=== PATIENT | female | born 1940 | race Caucasian/White ===

== ENCOUNTER → 2016-05-10 | Outpatient (CLI) | payer MEDICARE ==
[~2016-05-10] MED LIST: ACET-1256 PO; ALBUAER2 INH; APIX1TAB3 PO; ATV5X PO; CARV25TA2 PO; CRG25 PO; DILT120C PO; DILT120C68 PO; DXM/4 PO; FURO-85 PO; LOSA100T65 PO; LOSA1TAB38 PO; NTRGSL/4 UT; OPTIRAY 320 IV PRN; OXYC-609 PO; PRAV20TA PO; PRVC/20 PO; VNTHFA/IN INH
--- NOTE | 2016-05-10 15:32 | DIAGNOSTIC IMAGING REPORT ---
CT SCAN OF THE CHEST WITH IV CONTRAST CLINICAL HISTORY: Lung cancer follow-up. COMPARISON STUDY: Chest CT scans dated 12/16/2015 and 02/07/2013. TECHNIQUE: Following the IV administration of 93 cc of Optiray 320, CT scan of the thorax was performed from the thoracic inlet to the upper abdomen. Images are reviewed in the axial, sagittal, and coronal planes. IV contrast was administered without complication. CT DOSE: 214.37 mGy.cm FINDINGS: Thyroid: Imaged portions of the thyroid gland are normal in size and attenuation. Thoracic aorta: There is mild atherosclerotic calcification of the thoracic aorta, which is normal in caliber and demonstrates standard 3-vessel arch anatomy. No dissection is seen. Pulmonary vasculature: The main pulmonary arteries appear dilated suggesting pulmonary artery hypertension. There are no filling defects identified in the central pulmonary vessels to indicate pulmonary embolus. Note that this examination was not protocoled for evaluation of the pulmonary arteries. Heart: The heart is normal in size and configuration, and without pericardial effusion. The coronary arteries are densely calcified. Lungs and pleural spaces: A fat-containing Bochdalek hernia is present at the right lung base. Advanced emphysema is identified. A fiducial is seen in the left upper lobe. The left upper lobe pulmonary nodule seen on image #89 adjacent to the do show has continued to decrease in size from 12/16/2015. This now measures up to 7 mm. There is an enlarging left upper lobe pulmonary nodule seen more inferiorly on image #104. This measures 8 mm (previously measuring 3 mm). No concerning right-sided pulmonary lesion is identified. A 3 mm indeterminant right middle lobe nodule on image 167 is unchanged dating back to 2012 and is of doubtful significance. No airspace consolidation is seen typical for pneumonia and there is no pleural effusion. The trachea and central airways are clear. Mediastinum: There is no mediastinal lymphadenopathy. Huyen: Clear. Axillae: There is no axillary lymphadenopathy. Upper abdomen: The partially imaged kidneys are atrophic, right asymmetrically greater than left. There is glandular atrophy of the partially imaged pancreas. No adrenal lesion is seen. Skeletal structures: The skeletal structures are osteopenic. No lytic or blastic bony lesions are seen. Soft tissues: The patient is cachectic. IMPRESSION: 1. The subpleural pulmonary lesion in the left upper lobe adjacent to the metallic fiducial has continued to decrease in size from 12/16/2015. 2. There is a second and enlarging pulmonary nodule located more inferiorly in the left upper lobe which now measures up to 8 mm. This is concerning for progression of disease. 3. No mediastinal or hilar lymphadenopathy is identified. 4. Emphysema. 5. No airspace consolidation is seen typical for pneumonia and there is no pleural effusion. 6. Additional findings as above. Electronically signed by: Herbert Rodriguez M.D. 05/10/2016 3:31 PM Dictated Date/Time: 05/10/2016 3:23 PM
== END ==
LOC: C.CTS 15:07
PROVIDERS: ATTEND Radiology Radiation Oncology
DX: C34.12 Malignant neoplasm of upper lobe, left bronchus or lung (principal)

== ENCOUNTER → 2016-05-17 | Outpatient (CLI) | payer MEDICARE ==
[~2016-05-17] MED LIST changes: -OPTIRAY 320 IV PRN
--- NOTE | 2016-05-17 13:45 | Discharge Instructions ---
Discharge Instructions Procedure Procedure Date: May 17, 2016. Reason for visit: Thyroid Nodule, Lung Cancer. Discharge Discharge Date: May 17, 2016. Discharge Diagnosis: thyroid nodule Instructions Activity Recommendations: No limitations Return to School/Work: no limitations Recommended Home Diet: No Limitations, Resume Previous Diet Provider Instructions: Ultrasound guided fine-needle aspiration is performed on a left sided thyroid nodule with 1 pass using a 25-gauge needle. Specimens were reviewed by the pathologist in real time and deemed adequate for diagnosis. There were no immediate complications. Allergies Coded Allergies: Lisinopril (Verified Allergy, Intermediate, cough, 08/07/15) Uncoded Allergies: bees (Allergy, Severe, hives and swell up, 06/26/15) Vicky Keys Recommendations: Call your doctor if: * Temperature above 101 degrees * Pain not relieved by pain medicine ordered * There is increased drainage or redness from any incision * You have any unanswered questions or concerns. Your Doctors Instructions noted above were prepared by provider Herbert Rodriguez. Patient Signature Section: Patient Instructions Signature Page Radha De Souza Patient (or Guardian) Signature/Date: I have read and understand the instructions given to me by my caregivers. Caregiver/RN/Doctor Signature/Date: The above-named patient and/or guardian has received patient instructions on this date. + Original Patient Signature Page (only) stays with chart. Please make copy for patient.
--- NOTE | 2016-05-17 14:14 | DIAGNOSTIC IMAGING REPORT ---
ULTRASOUND-GUIDED FINE-NEEDLE ASPIRATION THYROID CLINICAL HISTORY: Left thyroid nodule. COMPARISON STUDY: Thyroid ultrasound dated 04/15/2016. PROCEDURE: The risks, benefits, and alternatives to the procedure were discussed with the patient. Written informed consent was obtained. The patient was placed supine in ultrasound, and the 1.6 x 1.8 x 1.6 cm calcification containing nodule in the left lobe of the thyroid was localized by ultrasound and selected for fine needle aspiration. The left neck was prepped and draped in the usual sterile fashion. The nodule was aspirated under ultrasound guidance with 1 pass utilizing 25-gauge needles. Specimens were reviewed by the pathologist in real-time and deemed adequate for diagnosis. The patient tolerated the procedure well and left the department in satisfactory condition. IMPRESSION: Completed fine-needle aspiration of a left thyroid nodule as above. Electronically signed by: Herbert Rodriguez M.D. 05/17/2016 2:12 PM Dictated Date/Time: 05/17/2016 2:11 PM
== END | disposition home or self-care (01) ==
LOC: C.ULTR 12:29
PROVIDERS: ATTEND Internal Medicine Endocrinology, Diabetes & Metabolism
DX: C34.10 Malignant neoplasm of upper lobe, unspecified bronchus or lung (principal); E04.1 Nontoxic single thyroid nodule

== ENCOUNTER → 2016-06-01 | Outpatient (CLI) | payer MEDICARE ==
--- NOTE | 2016-07-05 13:17 | Radiation Onc End of Treatmnt ---
End of Treatment Documentation Date July 05, 2016. 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 Received 5000 cGy. Last Edited By: Abigail Bowser on July 05, 2016 13:11 History Ms. De Souza is a 75-year-old female with a long smoking history. She recently stopped smoking several weeks ago but with the diagnosis of cancer has restarted smoking but only 3-4 cigarettes a day. In December of last year the patient presented to the emergency department with a cough and mild hemoptysis. A chest x-ray was performed and reportedly raised the question of a pulmonary nodule. On 03/28/[address] scan of the chest with contrast. This revealed a 1.3 x 1.0 cm right retropectoral lymph node that is slightly increased in size compared to the previous examination of 02/07/2013. An irregular 1.5 x 0.8 cm subpleural left upper lobe nodule was also identified corresponding to the chest radiograph taken 01/11/2015. A 0.5 cm right upper lobe nodule was seen that was unchanged compared to the CT of 02/07/2013 and a 4 mm right middle lobe nodule also unchanged. Patient went on to have a PET CT scan on 04/07/2015.. This revealed marked focal FDG uptake along the left posterior aspect of the thyroid gland with an SUV max of 7.4. This likely corresponded to a 1.7 cm nodule within the posterior aspect of the upper pole the left thyroid lobe. No cervical lymphadenopathy was identified. In the chest a mild FDG uptake was appreciated with an irregular 1.5 cm subpleural nodule within the left upper lobe with an SUV max of 3.1. There was mild asymmetric FDG uptake within the left hilum with an SUV max of 2.7. No corresponding enlarged lymph nodes were identified. The previously described right retropectoral lymph node had no significant FDG uptake. No suspicious FDG uptake as identified in the abdomen or pelvis and no suspicious FDG uptake is identified within the visualized skeletal structures. The patient was sent for evaluation to Dr. Brarie Shore on 04/24/2015. He ordered repeat pulmonary function tests and discussed navigational bronchoscopy and EBUS for tissue diagnosis. PFTs taken on April 02 showed severe obstruction with air trapping and reduced diffusion consistent with severe emphysema. This was repeated on 05/15/2015. This also identified very severe obstructive airway disease with no significant change after inhaled bronchodilator. There was moderate air trapping on lung volumes with severe reduction in DLCO consistent with severe chronic obstructive pulmonary disease. On 05/30/2015 Dr. Tyrell Baeza performed navigational bronchoscopy with biopsy of the left upper lobe mass with brushing and needle biopsy. A fiducial marker was placed at the left upper lobe mass and a [id number] of the endobronchial lesion in the left upper lobe was performed. A mass was noted along the posterior aspect of the left upper lobe bronchus and the right bronchial tree was examined and was unremarkable. In the left lower lobe bronchus encompassing approximately 25% of the circumference was a flat macular-type lesion that appeared abnormal. The bronchial brushings of the left upper lobe revealed atypical bronchial cells that are of concern for non-small cell carcinoma. Case: [id number]. A triple needle brushing of the left upper lobe revealed benign bronchial epithelium with no malignant cells. Case: [id number]. Bronchial washings from the left upper lobe revealed benign reactive bronchial epithelium with no malignant cells. Case: [id number]. Transbronchial aspirate revealed extremely rare atypical cells that could not exclude a non-small cell carcinoma Case: [id number]. 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 The left upper lobe bronchial biopsies revealed moderately differentiated adenocarcinoma. Case: [id number]. The patient returned to see Dr. Shore to discuss the bronchoscopy findings. The patient was told that she had a peripheral left upper lobe lesion that was an adenocarcinoma on biopsy and a squamous cell carcinoma the lining of the proximal left upper lobe bronchus. Because of her very poor lung function she was not felt to be a surgical candidate. Additional tests have been ordered on the tissue and we were asked to see the patient in referral for discussion of the radiation treatment options. After discussion with the patient it was decided to proceed with definitive radiation to the 2 lesions. The one lesion was treated with a stereotactic course of 4 fractions at 1200 cGy per fraction for a total dose of 48 Gy over 6 elapsed days. The second lesion was treated with a hypo-fractionated technique of 12 fractions of 400 cGy per fraction also for total dose of 48 Gy over 17 days. She tolerated her courses of radiation therapy well. She does have claustrophobia and required the use of lorazepam prior to treatment. She had no change in her respiratory status. There was no increased cough or shortness of breath. She did develop some mild dysphagia at the end of the hypo-fractionated treatment. This was treated with MBXC. This cleared prior to initiation of the SBRT. She did had the complaint of some shoulder discomfort due to positioning when lying on the table. She had no complaints of increasing fatigue. There were no areas of skin irritation at the end of treatment. Skin was treated preventatively with natural care gel. She took dexamethasone one hour prior to the SBRT treatments. Her respiratory status is unchanged. She becomes short of breath when trying to do vigorous activities. She has no problems with walking in from the parking lot. She denies cough. She has noted no increased wheezing. She did not require oxygen at night or throughout the day at home. She was recently found to have a thyroid nodule and had an FNA performed today. At our request she had a recheck CAT scan of the chest 2016. This showed the subpleural pulmonary lesion in the left upper lobe adjacent to the metallic fiducial marker has continued to decrease in size from . She has a second an enlarging pulmonary nodule located more inferiorly in the left upper lobe which now measures up to 8 mm. This is concerning for progression of disease. There is no mediastinal or hilar lymphadenopathy identified. She does have emphysema. No airspace consolidation is seen typical for pneumonia and there is no pleural effusion. She underwent CT simulation. She was found to be a candidate for stereotactic body radiation therapy. This was completed 06/23/2016. She received 5000 cGy. Physics Course Treatment Site [employer] Start Date End Date Elapsed Days # [place] Daily Dose (cGy) Total Dose (cGy) C3- Lt Lung, SBRT VMAT, 5 arcs 6X 06/17/2016 06/23/2016 7 5 1000 5000 Do documented final doses agree with prescribed doses? Yes If not, explain: Is patients chart complete and accurate? Yes If not, explain: Notes/Comments: Previous radiation treatments: - Lt Lung SBRT, 48 Gy in 4 fractions, finishing on 09/05/2015, and - Chest, 48 Gy in 12 fractions, finishing on 09/05/2015. Additional Notes She completed her course of radiation therapy. She tolerated this well. She did not require any breaks in treatment. She was prescribed dexamethasone to be taken prior to each treatment. She then continued the steroid therapy for one week post treatment. She had no complaints of dysphagia. She used aloe vera juice and [place] honey to prevent soreness of the throat. She did not experience any skin irritation. She'll continue regular follow-up with Dr. Reyez and Dr. Ross. We asked her to return to our office in one month. She may call if she has any questions or concerns in the interim. Pain Management She denied pain before, during, and at the end of treatment. Copies To Parrish Ross D.O.; Catalino Reyez D.O.
--- NOTE | 2016-07-05 13:20 | Rad Onc Survivorship Care Plan ---
Treatment Summary Health Care Providers Primary Care Provider: Dr. Reyez Surgeon: Dr. Shore Radiation Oncologist: Dr. Chris Nicole Medical Oncologist: Dr. 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 Received 5000 cGy. Last Edited By: Abigail Bowser on July 05, 2016 13:11 Radiation Treatment Radiation: Yes Body Area Treated: left upper lobe End Date (Year): 06/03/2016 Treatment: Course Treatment Site [employer] Start Date End Date Elapsed Days # [place] Daily Dose (cGy) Total Dose (cGy) C3- Lt Lung, SBRT VMAT, 5 arcs 6X 06/17/2016 06/23/2016 7 5 1000 5000 Do documented final doses agree with prescribed doses? Yes If not, explain: Is patients chart complete and accurate? Yes If not, explain: Notes/Comments: Previous radiation treatments: - Lt Lung SBRT, 48 Gy in 4 fractions, finishing on 09/05/2015, and - Chest, 48 Gy in 12 fractions, finishing on 09/05/2015. Familial Cancer Assessment Genetic/Hereditary Risk Factor: Yes Genetic Counseling: No Follow-Up Care Plan Ongoing Treatment Ongoing treatment needed: Yes Name / Duration / Side Effects Follow up studies per NCCN guidelines and your oncologist or surgical dressing maker. Schedule of Clinicial Visits Coordinating Provider & When: Follow up with your oncologist, surgeon, and primary care provider. Cancer Surveillance Provider/What/When/How Often: You will follow up with our office in 6 months and then yearly. General Health Care Please continue to see your primary care provider for all general health care recommended for a person your age, including cancer screening tests. Any symptoms should be brought to the attention of your provider: 1. Anything that represents a brand new symptom; 2. Anything that represents a persistent symptom; 3. Anything you are worried about that might be related to the cancer coming back. Possible Effects Late and/or watermelon inspector effects: Following the completion of treatment, your acute side effects from radiation treatment should improve including but not limited to fatigue, skin irritation, esophagitis, shortness of breath and cough. Late side effects include, but are not limited to radiation pneumonitis, esophageal stricture, fistula formation, rib fracture, pulmonary fibrosis, decreased breathing function/quality, spinal myelopathy, cardiac dysfunction ( atheroscelerosis, pericarditis, CHF, myocardial infarction, valvular disease). You are also at risk of developing secondary cancer. Concerns Cancer survivors may experience issues with the areas listed below. If you have any concerns in these or other areas, please speak with your doctors or nurses to find out how you can get help with them. Lifestyle / Behaviors A number of lifestyle / behaviors can affect your ongoing health, including the risk for the cancer coming back or developing another cancer. Discuss these recommendations with your doctor or nurse. Prepared By Your Survivorship Care Plan was prepared by Abigail Bowser on 07/05/16. Additional Copies To Parrish Ross D.O.; Catalino Reyez D.O.
== END | disposition home or self-care (01) ==
LOC: C.ONC 12:00
PROVIDERS: ATTEND Radiology Radiation Oncology
DX: Z51.0 Encounter for antineoplastic radiation therapy (principal); C34.12 Malignant neoplasm of upper lobe, left bronchus or lung

== ENCOUNTER 2016-06-21 16:52 | Emergency (ER) | payer MEDICARE ==
[~2016-06-21] VITALS: Ht 157.5 cm; Wt 48.9 kg
[~2016-06-21 16:52] MED LIST changes: -ACET-1256 PO; -APIX1TAB3 PO; -ATV5X PO; -CRG25 PO; -DILT120C PO; -DXM/4 PO; -FURO-85 PO; -LOSA100T65 PO; -NTRGSL/4 UT; -OXYC-609 PO; -PRVC/20 PO; -VNTHFA/IN INH
[2016-06-21 17:14] VITALS: TEMP 36.5; Ht 157.5 cm; Wt 48.9 kg
[2016-06-21] MEDS ORDERED: VNTHFA/IN INH (18:30)
[2016-06-21] MEDS ORDERED: DXM/4 PO (18:30)
[2016-06-21] MEDS ORDERED: CRG25 PO (18:30)
[2016-06-21] MEDS ORDERED: PRVC/20 PO (18:30)
[2016-06-21] MEDS ORDERED: LOSA100T65 PO (18:30)
[2016-06-21] MEDS ORDERED: OXYC-609 PO (18:30)
[2016-06-21] MEDS ORDERED: ATV5X PO (18:30)
[2016-06-21] MEDS ORDERED: DILT120C PO (18:30)
[2016-06-21] MEDS ORDERED: DOXYCYCLINE HYCLATE 100 MG CAP PO STA (18:31)
[2016-06-21] MEDS ORDERED: ACET-1256 PO (18:33)
--- NOTE | 2016-06-21 18:34 | EMERGENCY ROOM VISIT NOTE ---
History First contact with patient: 17:24 Chief Complaint: ARM PAIN Stated Complaint: STRANGE LUMO ON FORE ARM History of Present Illness The patient is a 75 year old female who presents to the Emergency Room via private vehicle accompanied by daughter with complaints of "strange lump on forearm". The patient states that she was outside yesterday, and noticed the bump on the left dorsal forearm today. She notes that she is on a blood thinner. She states she was treated for Lyme disease in the past. She states she believes that that may be part of a tick still stuck in this region. There is minimal pain. She is unsure of her tetanus status, but is to call her family doctor tomorrow to identify her status. Review of Systems A complete 6-point Review of Systems was discussed with the patient, with pertinent positives and negatives listed in the History of Present Illness. All remaining Review of Systems questions can be considered negative unless otherwise specified. Past Medical/Surgical History Medical Problems: (1) A-fib (2) Bronchitis (3) Emphysema lung (4) Heart disease (5) HTN (hypertension) Surgical Problems: (1) History of renal stent Family History Cancer FH: heart disease FHx: lung disease Hypertension Social History Smoking Status: Former Smoker Housing Status: lives alone Occupation Status: retired Current/Historical Medications Scheduled Apixaban (Eliquis), 5 MG PO BID Carvedilol (Carvedilol), 25 MG PO BID Dexamethasone (Decadron), 4 MG PO DAILY Diltiazem Hcl Coated Beads (Diltiazem Hcl Er), 120 MG PO DAILY Losartan Potassium (Cozaar), 100 MG PO QAM Pravastatin Sod (Pravastatin Sodium), 20 MG PO QAM Scheduled PRN Acetaminophen (Tylenol), 1,000 MG PO UD PRN for Pain Albuterol Hfa (Ventolin Hfa), 2 PUFFS INH QID PRN for SOB/Wheezing Furosemide (Lasix), 20 MG PO DAILY PRN for Edema/Shortness of Breath Lorazepam (Lorazepam), 0.5 MG PO DAILY PRN for Anxiety Nitroglycerin (Nitrostat), 0.4 MG UT UD PRN for Chest Pain Oxycodone HCl (Oxycodone HCl), 5-10 MG PO Q4-6HRS PRN for Pain Allergies Coded Allergies: Bee Venom (Verified Allergy, Intermediate, Hives and swelling, 4/24/17) Lisinopril (Verified Allergy, Intermediate, cough, 06/21/16) Physical Exam Vital Signs Date Time Temp Pulse Resp B/P Pulse Ox O2 Delivery O2 Flow Rate FiO2 06/21/16 18:36 64 18 158/92 92 Room Air 06/21/16 17:14 36.5 75 20 154/93 86 Room Air Physical Exam VITAL SIGNS - Vital signs and nursing notes were reviewed. GENERAL - 75-year-old female appearing her stated age who is in no acute distress. Communicates well with provider and answers questions appropriately. SKIN - there is evidence of retained mouthparts of a tick in the dorsal aspect of the right mid forearm. There is slight elevation of this region and a small nodular-like 1 cm in diameter raised lesion. No active extravasation of blood. Medical Decision & Procedures Medications Administered Medications (Trade) Dose Ordered Sig/Mo Route Start Time Stop Time Status Last Admin Dose Admin Doxycycline Hyclate (Vibramycin Cap) 200 mg ONE STAT PO 06/21/16 18:31 06/21/16 18:32 DC 06/21/16 18:40 200 MG Medical Decision Patient was seen and evaluated as above. She is oxygenating at 86% on room air , and notes that this is chronic for her and was verified by her daughter. She declined workup for her diminished oxygenation saturation. The patient presents here with chief complaint of tick in her forearm. No other complaints at this time. There is a small retained piece of the tick. I offered to attempt to remove this, and she provided consent. A sterile 18-gauge needle was used to remove this without difficulty. There is no evidence of skin disruption. She'll be given a prophylactic dose of 200 mg of doxycycline for the tick bite. She was educated upon worrisome symptoms for Lyme disease in which to return. She was educated upon worrisome symptoms which to return, had questions prior to discharge and was discharged home in good condition. In evaluation treatment this patient following differential diagnoses entertained: Tick, cellulitis, among others. Impression Primary Impression: Tick bite Departure Information Dispostion Home / Self-Care Condition GOOD Referrals Catalino Reyez D.O. (PCP) Patient Instructions My [facility] Additional Instructions You were seen in the emergency department for your tick bite on her left arm. Please continue your regular medications. You may clean the area with soap and water and place a small amount of antibacterial ointment on this region. Please watch for worsening infection to include worsening rash or redness streaking. At this time I do not suspect Lyme disease, however please beware of symptoms such as fevers, chills, joint pain, and enlarging rash or any new/concerning symptoms. Please follow-up with her family doctor or return here for any new/ concerning symptoms. Please return to the emergency department with any new/concerning symptoms.
[2016-06-21 18:36] VITALS: BP 158/92; PULSE 64; O2SAT 92
[2016-06-21] MEDS ORDERED: FURO-85 PO (20:22)
[2016-06-21] MEDS ORDERED: NTRGSL/4 UT (20:22)
[2016-06-21] MEDS ORDERED: APIX1TAB3 PO (20:22)
--- NOTE | 2016-06-23 17:53 | EMERGENCY ROOM VISIT NOTE ---
ED Visit Note First contact with patient: 17:24 I have personally evaluated and examined this patient. I agree with assessment and plan of Av Bush PA-C. Tick bite with some localized swelling on blood thinners.
== END 2016-06-21 18:46 | disposition home or self-care (01) ==
LOC: C.EDB 16:53 → C.EDD 18:46
DX: S50.862A Insect bite (nonvenomous) of left forearm, initial encounter (principal); W57.XXXA Bitten or stung by nonvenomous insect and other nonvenomous arthropods, initial encounter; Z79.01 Long term (current) use of anticoagulants; I48.91 Unspecified atrial fibrillation; J43.9 Emphysema, unspecified; I10 Essential (primary) hypertension; Z80.9 Family history of malignant neoplasm, unspecified; Z82.49 Family history of ischemic heart disease and other diseases of the circulatory system; Z87.891 Personal history of nicotine dependence; Z79.899 Other long term (current) drug therapy

== ENCOUNTER → 2016-09-01 | Outpatient (CLI) | payer MEDICARE ==
[~2016-09-01] MED LIST changes: +ACET-1256 PO; -ALBUAER2 INH; +APIX1TAB3 PO; +ATV5X PO; -CARV25TA2 PO; +CRG25 PO; +DILT120C PO; -DILT120C68 PO; +DXM/4 PO; +FURO-85 PO; +LOSA100T65 PO; -LOSA1TAB38 PO; +NTRGSL/4 UT; +OXYC-609 PO; -PRAV20TA PO; +PRVC/20 PO; +VNTHFA/IN INH
[2016-09-01 14:53] VITALS: BP 151/77; PULSE 84; TEMP 37; O2SAT 87
--- NOTE | 2016-09-01 17:07 | Radiation Oncology Follow-Up ---
Radiation Oncology Follow-Up Date of Visit Sep 01, 2016. 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 Received 5000 cGy. Last Edited By: Abigail Bowser on July 05, 2016 13:11 History of Present Illness Ms. De Souza is a 75-year-old female with a long smoking history. She recently stopped smoking several weeks ago but with the diagnosis of cancer has restarted smoking but only 3-4 cigarettes a day. In December of last year the patient presented to the emergency department with a cough and mild hemoptysis. A chest x-ray was performed and reportedly raised the question of a pulmonary nodule. On 03/28/[address] scan of the chest with contrast. This revealed a 1.3 x 1.0 cm right retropectoral lymph node that is slightly increased in size compared to the previous examination of 02/07/2013. An irregular 1.5 x 0.8 cm subpleural left upper lobe nodule was also identified corresponding to the chest radiograph taken 01/11/2015. A 0.5 cm right upper lobe nodule was seen that was unchanged compared to the CT of 02/07/2013 and a 4 mm right middle lobe nodule also unchanged. Patient went on to have a PET CT scan on 04/07/2015.. This revealed marked focal FDG uptake along the left posterior aspect of the thyroid gland with an SUV max of 7.4. This likely corresponded to a 1.7 cm nodule within the posterior aspect of the upper pole the left thyroid lobe. No cervical lymphadenopathy was identified. In the chest a mild FDG uptake was appreciated with an irregular 1.5 cm subpleural nodule within the left upper lobe with an SUV max of 3.1. There was mild asymmetric FDG uptake within the left hilum with an SUV max of 2.7. No corresponding enlarged lymph nodes were identified. The previously described right retropectoral lymph node had no significant FDG uptake. No suspicious FDG uptake as identified in the abdomen or pelvis and no suspicious FDG uptake is identified within the visualized skeletal structures. The patient was sent for evaluation to Dr. Barrie Shore on 04/24/2015. He ordered repeat pulmonary function tests and discussed navigational bronchoscopy and EBUS for tissue diagnosis. PFTs taken on April 02 showed severe obstruction with air trapping and reduced diffusion consistent with severe emphysema. This was repeated on 05/15/2015. This also identified very severe obstructive airway disease with no significant change after inhaled bronchodilator. There was moderate air trapping on lung volumes with severe reduction in DLCO consistent with severe chronic obstructive pulmonary disease. On 05/30/2015 Dr. Tyrell Baeza performed navigational bronchoscopy with biopsy of the left upper lobe mass with brushing and needle biopsy. A fiducial marker was placed at the left upper lobe mass and a [id number] of the endobronchial lesion in the left upper lobe was performed. A mass was noted along the posterior aspect of the left upper lobe bronchus and the right bronchial tree was examined and was unremarkable. In the left lower lobe bronchus encompassing approximately 25% of the circumference was a flat macular-type lesion that appeared abnormal. The bronchial brushings of the left upper lobe revealed atypical bronchial cells that are of concern for non-small cell carcinoma. Case: [id number]. A triple needle brushing of the left upper lobe revealed benign bronchial epithelium with no malignant cells. Case: [id number]. Bronchial washings from the left upper lobe revealed benign reactive bronchial epithelium with no malignant cells. Case: [id number]. Transbronchial aspirate revealed extremely rare atypical cells that could not exclude a non-small cell carcinoma Case: [id number]. 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 The left upper lobe bronchial biopsies revealed moderately differentiated adenocarcinoma. Case: [id number]. The patient returned to see Dr. Shore to discuss the bronchoscopy findings. The patient was told that she had a peripheral left upper lobe lesion that was an adenocarcinoma on biopsy and a squamous cell carcinoma the lining of the proximal left upper lobe bronchus. Because of her very poor lung function she was not felt to be a surgical candidate. Additional tests have been ordered on the tissue and we were asked to see the patient in referral for discussion of the radiation treatment options. After discussion with the patient it was decided to proceed with definitive radiation to the 2 lesions. The one lesion was treated with a stereotactic course of 4 fractions at 1200 cGy per fraction for a total dose of 48 Gy over 6 elapsed days. The second lesion was treated with a hypo-fractionated technique of 12 fractions of 400 cGy per fraction also for total dose of 48 Gy over 17 days. She tolerated her courses of radiation therapy well. She does have claustrophobia and required the use of lorazepam prior to treatment. She had no change in her respiratory status. There was no increased cough or shortness of breath. She did develop some mild dysphagia at the end of the hypo-fractionated treatment. This was treated with MBXC. This cleared prior to initiation of the SBRT. She did had the complaint of some shoulder discomfort due to positioning when lying on the table. She had no complaints of increasing fatigue. There were no areas of skin irritation at the end of treatment. Skin was treated preventatively with natural care gel. She took dexamethasone one hour prior to the SBRT treatments. Her respiratory status is unchanged. She becomes short of breath when trying to do vigorous activities. She has no problems with walking in from the parking lot. She denies cough. She has noted no increased wheezing. She did not require oxygen at night or throughout the day at home. She was recently found to have a thyroid nodule and had an FNA performed today. At our request she had a recheck CAT scan of the chest 2016. This showed the subpleural pulmonary lesion in the left upper lobe adjacent to the metallic fiducial marker has continued to decrease in size from . She has a second an enlarging pulmonary nodule located more inferiorly in the left upper lobe which now measures up to 8 mm. This is concerning for progression of disease. There is no mediastinal or hilar lymphadenopathy identified. She does have emphysema. No airspace consolidation is seen typical for pneumonia and there is no pleural effusion. She underwent CT simulation. She was found to be a candidate for stereotactic body radiation therapy. This was completed 06/23/2016. She received 5000 cGy. Interim History She has noticed since completion of her radiation she does have some increased shortness of breath. She denies cough or sputum production. She denies any wheezing. She denies fatigue from her treatment. Pulse oximetry today was 80- 87% on room air. When discussed she states that this is the usual range for her pulse oximetry. She has been followed by Dr. Devi. She stated that he has now retired and she needs a new pulmonary physician. She states she has not been prescribed oxygen therapy. As part of her staging studies in the past she had a PET scan this did reveal a nodule of the thyroid that was active. This was noted when she was seen for treatment of the lung nodule. She was referred to Dr. Zimmerman and underwent a fine-needle aspiration. 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 Allergies Coded Allergies: Bee Venom (Verified Allergy, Intermediate, Hives and swelling, 06/21/16) Lisinopril (Verified Allergy, Intermediate, cough, 06/21/16) Home Medications Scheduled Apixaban (Eliquis), 5 MG PO BID Carvedilol (Carvedilol), 25 MG PO BID Diltiazem Hcl Coated Beads (Diltiazem Hcl Er), 120 MG PO DAILY Losartan Potassium (Cozaar), 100 MG PO QAM Pravastatin Sod (Pravastatin Sodium), 20 MG PO QAM Scheduled PRN Acetaminophen (Tylenol), 1,000 MG PO UD PRN for Pain Albuterol Hfa (Ventolin Hfa), 2 PUFFS INH QID PRN for SOB/Wheezing Furosemide (Lasix), 20 MG PO DAILY PRN for Edema/Shortness of Breath Lorazepam (Lorazepam), 0.5 MG PO DAILY PRN for Anxiety Nitroglycerin (Nitrostat), 0.4 MG UT UD PRN for Chest Pain Oxycodone HCl (Oxycodone HCl), 5-10 MG PO Q4-6HRS PRN for Pain Review of Systems Gastrointestinal: Symptoms: WNL Oral: Symptoms: No Problems Respiratory: Symptoms: SOB With Exertion, Productive Cough Sputum Character: Clear sputum; Other Respiratory: States cough comes and goes for her - worse when has postnasal drip Urinary: Symptoms: WNL Skin: Symptoms: No Problems Physical Exam Vital Signs Date Time Temp Pulse Resp B/P (MAP) Pulse Ox O2 Delivery O2 Flow Rate FiO2 09/01/16 14:53 37.0 84 24 151/77 87 Fatigue: None General Appearance: no apparent distress Eyes: normal inspection, EOMI ENT: normal ENT inspection, hearing grossly normal Neck: supple, no adenopathy, thyroid normal Respiratory/Chest: lungs clear, no respiratory distress, no accessory muscle use, + decreased breath sounds Cardiovascular: regular rate, rhythm, no gallop, no murmur Abdomen: non tender, soft, no organomegaly Extremities: no pedal edema Neurologic/Psychiatric: no motor/sensory deficits, alert, normal mood/affect Skin: warm/dry Assessment & Plan Plan: Patient will be referred to pulmonary for evaluation of her low pulse pulse oximetry findings. She'll be referred back to Dr. Zimmerman in regards to the finding of papillary thyroid carcinoma. She is due for recheck CT of the chest post radiation at the end of this month. This will be arranged. She currently does not have any follow-up appointment with medical oncology. We'll plan to refer her back to Dr. Ross after the CT of the chest is complete. We asked her to return to our office in 6 months. She'll be notified as to results of the CT of the chest. Total Time In Follow-Up I spent 20 minutes speaking to the patient and performing examination. I spent 20 minutes reviewing information, preparing the survivorship document, and completing this note. Copy To Parrish Ross D.O.; Catalino Reyez D.O.; Justin Zimmerman M.D.; Boni Pendleton MD
== END | disposition home or self-care (01) ==
LOC: C.ONC 14:41
PROVIDERS: ATTEND Physician Assistant Medical
DX: Z08 Encounter for follow-up examination after completed treatment for malignant neoplasm (principal); Z92.3 Personal history of irradiation; Z85.118 Personal history of other malignant neoplasm of bronchus and lung

== ENCOUNTER → 2016-09-23 | Outpatient (CLI) | payer MEDICARE ==
[~2016-09-23] MED LIST changes: -DXM/4 PO; +OPTIRAY 320 IV PRN
--- NOTE | 2016-09-23 15:02 | DIAGNOSTIC IMAGING REPORT ---
(CHEST) THORAX WITH CLINICAL HISTORY: 75 years-old Female presenting with LUNG CA. TECHNIQUE: Multidetector CT imaging of the chest was performed after the administration of intravenous contrast. IV contrast: 94 mL of Optiray 320. A dose lowering technique was used consistent with the principles of ALARA (as low as reasonably achievable). COMPARISON: 05/10/2016. CT DOSE (mGy.cm): The estimated cumulative dose is 245.69 mGycm. 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 On soft tissue windows, normal thyroid and thoracic inlet. No axillary, supraclavicular, hilar, or mediastinal lymphadenopathy. Minimal atherosclerosis of the origins of the major branch vessels of the aortic arch. Varicose dilatation of the right subclavian/axillary vein. Main pulmonary artery top normal in size. Coronary artery calcification. Normal heart size. No pericardial or pleural effusion. Right fat-containing Bochdalek hernia. Nodular thickening of the left adrenal gland unchanged, nonspecific. On lung windows, emphysema. Peripheral left upper lobe solid nodule adjacent to a metallic fiducial marker now measures 6 mm, previously 7 mm (series 4 image 84). Previously noted enlarging nodule slightly inferior and more central in the left upper lobe now measures 4 mm, previously 8 mm (series 4 image 99). Minimal consolidation in the lingula, possibly scarring or atelectasis. Right middle lobe groundglass nodule unchanged. Layering debris noted in the mid thoracic trachea. Mild bronchial wall thickening. On bone windows, normal osseous structures. IMPRESSION: 1. No interval growth of pulmonary nodules. The largest measures 6 mm in the left upper lobe adjacent to the fiducial marker further described above. 2. Emphysema. 3. No acute intrathoracic pathology. Electronically signed by: Joao Ziegler M.D. 09/23/2016 3:00 PM Dictated Date/Time: 09/23/2016 2:49 PM
== END | disposition home or self-care (01) ==
LOC: C.CTS 14:31
PROVIDERS: ATTEND Physician Assistant Medical
DX: C34.12 Malignant neoplasm of upper lobe, left bronchus or lung (principal)

== ENCOUNTER → 2017-02-01 | Outpatient (CLI) | payer MEDICARE ==
[~2017-02-01] MED LIST changes: -OPTIRAY 320 IV PRN
--- NOTE | 2017-02-01 16:06 | DIAGNOSTIC IMAGING REPORT ---
CHEST 2 VIEWS ROUTINE CLINICAL HISTORY: J44.9 Chronic obstructive pulmonary [id number] dyspnea COMPARISON STUDY: 08/07/2015 FINDINGS: Chronic emphysematous change. Chronic pulmonary vascular prominence. Unchanging interstitial change. Postprocedural marker left upper lung unchanged. No focal infiltrate. IMPRESSION: Chronic change. Emphysematous change. No acute process. The above report was generated using voice recognition software. It may contain grammatical, syntax or spelling errors. Electronically signed by: Bentley Quinn M.D. 02/01/2017 4:04 PM Dictated Date/Time: 02/01/2017 4:03 PM
== END | disposition home or self-care (01) ==
LOC: C.RAD 15:47
PROVIDERS: ATTEND Physician Assistant
DX: J44.9 Chronic obstructive pulmonary disease, unspecified (principal); R05 Cough

== ENCOUNTER → 2017-04-11 | Outpatient (CLI) | payer MEDICARE ==
[2017-04-11 18:04] LABS: BLOOD UREA NITROGEN 11 mg/dl (7-18); CREATININE 0.59 mg/dl (0.60-1.20)
== END | disposition home or self-care (01) ==
LOC: C.LABPBG 13:16
PROVIDERS: ATTEND Physician Assistant Medical
DX: C34.12 Malignant neoplasm of upper lobe, left bronchus or lung (principal)

== ENCOUNTER → 2017-05-03 | Outpatient (CLI) | payer MEDICARE ==
[~2017-05-03] MED LIST changes: +OPTIRAY 320 IV PRN
--- NOTE | 2017-05-03 16:03 | DIAGNOSTIC IMAGING REPORT ---
(CHEST) THORAX WITH CT DOSE: 397.11 mGy.cm HISTORY: Lung carcinoma C34.12 TECHNIQUE: Multiaxial CT images of the chest were performed following the intravenous administration of contrast. A dose lowering technique was utilized adhering to the principles of ALARA. COMPARISON: 09/23/2016 FINDINGS: Emphysematous change throughout both hemithoraces considered stable. Several parenchymal nodules essentially unaltered. Scattered areas of atelectatic change are present. Small fibrotic region at the left hilum considered unchanged. No new or interval findings. No significant mediastinal or hilar adenopathy. Degenerative changes of the osseous structures are stable. IMPRESSION: Stable, unchanged CT of the chest. Pulmonary nodularity and emphysematous change stable with no evidence for progression or significant interval change. The above report was generated using voice recognition software. It may contain grammatical, syntax or spelling errors. Electronically signed by: Bentley Quinn M.D. 05/03/2017 4:01 PM Dictated Date/Time: 05/03/2017 3:48 PM
== END | disposition home or self-care (01) ==
LOC: C.CTS 15:29
PROVIDERS: ATTEND Physician Assistant Medical
DX: C34.12 Malignant neoplasm of upper lobe, left bronchus or lung (principal)

== ENCOUNTER 2018-05-07 17:18 | Inpatient (IN) ==
[2018-05-07] MEDS ORDERED: LEVALBUTEROL 1.25MG/0.5ML NEB NEB STA (17:49)
[2018-05-07] MEDS ORDERED: SODIUM CHLORIDE 0.9% 500 ML IV ONE (17:51)
[2018-05-07 17:57] LABS: Basophils # (auto) 0.01 K/uL (0-0.2); Basophils % (auto) 0.2 %; Eosinophils # (auto) 0.08 K/uL (0-0.5); Eosinophils % (auto) 1.7 %; Hematocrit (blood only) 38.4 % (37-47); Immature Granulocytes # (auto) 0.01 K/uL (0.00-0.02); Immature Granulocytes % (auto) 0.2 %; Lymphocytes # (auto) 1.05 K/uL (1.2-3.4); Lymphocytes % (auto) 22.9 %; Mean Corpuscular Hgb Conc 33.9 g/dL (32-36); Mean Corpuscular Volume 89.3 fL (80-100); Monocytes # (auto) 0.77 K/uL (0.11-0.59); Monocytes % (auto) 16.8 %; Neutrophils # (auto) 2.66 K/uL (1.4-6.5); Neutrophils % (auto) 58.2 %; Platelet Count 166 K/uL (130-400); RDW Coefficient of Variation 12.2 % (11.5-14.5); RDW Standard Deviation 39.1 fL (36.4-46.3); White Blood Count 4.58 K/uL (4.8-10.8)
[2018-05-07 18:15] LABS: iSTAT Blood Urea Nitrogen 9 mg/dl (7-18); iSTAT Carbon Dioxide > 40 mEq/l (24-31); iSTAT Chloride 80 mEq/L (101-112); iSTAT Creatinine 0.5 mg/dl (0.6-1.3); iSTAT Glucose 109 mg/dl (70-99); iSTAT Hematocrit 40 % (37-47); iSTAT Hemoglobin 13.6 g/dl (12.0-16.0); iSTAT Ionized Calcium 1.12 mmol/l (1.12-1.32); iSTAT Potassium 4.2 mEq/L (3.3-5.0); iSTAT Sodium 132 mEq/L (135-144)
[2018-05-07 18:19] LABS: Alanine Aminotransferase 27 U/L (12-78); Albumin Globulin Ratio 1.2 (0.9-2); Albumin Level 3.8 gm/dl (3.4-5.0); Alkaline Phosphatase 53 U/L (45-117); Aspartate Aminotransferase 19 U/L (15-37); BUN Creatinine Ratio 24.7 (10-20); Bilirubin,Total 0.5 mg/dl (0.2-1); Blood Urea Nitrogen 9 mg/dl (7-18); Carbon Dioxide 43 mmol/L (21-32); Chloride 86 mmol/L (98-107); Creatine Kinase 43 U/L (26-192); Creatine Kinase MB 1.4 ng/ml (0.5-3.6); Creatinine Clr Calc Pharmacy 95.1 ml/min; Est GFR (African American) 120.1; Est GFR (Non-African American) 103.6; Globulin 3.3 gm/dl (2.5-4.0); Glucose 106 mg/dl (70-99); Potassium 4.3 mmol/L (3.5-5.1); Sodium 132 mmol/L (136-145); Total Protein 7.1 gm/dl (6.4-8.2); Troponin I < 0.015 ng/ml (0-0.045)
[2018-05-07] MEDS ORDERED: OPTIRAY 320 125ml IV PRN (18:28)
--- NOTE | 2018-05-07 18:36 | CT Scan Report ---
CT head/brain wo con CT DOSE: HISTORY: Mental status change Pt c/o AMS TECHNIQUE: Multiaxial CT images of the head were performed without the use of intravenous contrast. A dose lowering technique was utilized adhering to the principles of ALARA. Comparison: 04/20/2007 Findings: The paranasal sinuses and mastoid air cells are clear. Mild components of chronic small ves carlton change are present. 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 Ventricular system is midline. No evidence for acute intracranial hemorrhage. Impression: Chronic and age-related change. No acute process. The above report was generated using voice recognition software. It may contain grammatical, syntax or spelling errors. Electronically signed by: Bentley Quinn M.D. 05/07/2018 6:34 PM
--- NOTE | 2018-05-07 18:38 | CT Scan Report ---
Study: CT maxillofacial region HISTORY: Mass. Prior studies: None FINDINGS: All major sinuses are clear. The estimated units are patent bilaterally. There are mild hyperplastic changes the nasal turbinates as well as anterior nasal septum. Configurat ion is recommended if a potential mass is present. Major bony structures are intact with no evidence for bony destructive process. Orbital margins are i ntact. IMPRESSION: Hyperplastic changes the nasal turbinates with potential nodularity of the anterior nasal septum. Study is otherwise normal. Direct visualization/evaluation is recommended if a mass is prese nt. Electronically signed by: Bentley Quinn M.D. 05/07/2018 6:37 PM
--- NOTE | 2018-05-07 18:48 | CT Scan Report ---
CT angio chest PE protocol CT DOSE: 866.34 mGy.cm HISTORY: Dyspnea Chest Pain, eval for PE TECHNIQUE: Multiaxial CT images of the chest were performed following the intravenous administration of contrast to evaluate the pulmonary arteries. Maximal intensity projection images were also obtaine d. A dose lowering technique was utilized adhering to the principles of ALARA. COMPARISON STUDY: 05/03/2017 FINDINGS: The thoracic aorta shows mild atherosclerotic change. No well-defined evidence for aneurysm or dissection. Diameter of the a sending aorta is 3.5 cm at maximum. There are findings of progressive bilateral nodularity. There is a right anterior perihilar nodule measuring 2.5 x 1.5 cm. This is also associated with a sma ll filling defect of a second order right upper lobe vessel best seen transaxial image 157 There is an interval or progressive left upper lobe nodule measuring 1.1 cm medially anterior to the major fissure. A pleural-based nodule associated vascular clip is slightly increased in prominence at 6 mm. There are findings of diffuse emphysematous change throughout both hemithoraces. This is unchanged. IMPRESSION: 1. Progressive nodularity bilaterally suggesting progressive metastatic change. 2. Stable emphysematous change. 3. Small second-order pulmonary embolus involving the right upper lobe. 4. Major central vessels show no significant embolus formation. The above report was generated using voice recognition software. It may contain grammatical, syntax or spelling errors. Electronically signed by: Bentley Quinn M.D. 05/07/2018 6:47 PM
--- NOTE | 2018-05-07 19:43 | History & Physical Report ---
Date of Service May 07, 2018 Assessment & Plan (1) Pulmonary embolism: This is a 77-year-old female who presents to the emergency room due to shortness of breath and found to have right upper lobe pulmonary embolus. She is here with her daughter. She reports nonspecific symptoms like feeling weak, increased dyspnea on exertion, chest tightness for the past few days in her home. Patient's daughter went and checked on her earlier today and said her oxygen level read in the 90s and she was at her baseline oxygen use which is 4- 1/2 L. She was brought in for further evaluation. Of note denies syncope, chest pain, visual changes, headache, dysphagia, abdominal pain. Does have occasional constipation. Denies calf pain. Is relatively mobile as she can be although her oxygen tank does limit her she says. Pulmonary embolism as seen on CTA -Likely secondary to progressive lung cancer disease, COPD. -Patient previously on Eliquis for her A. fib Plan -Bilateral lower extremity Dopplers pending -Admit to med telemetry -Begin IV heparin -Hold home Eliquis -Discussed with patient preliminarily regarding anticoagulation therapy options, please note patient is adamantly against warfarin given history of her late dying from apparent complications from this. Patient is also not in favor of injecting herself. -Consult oncology, routine Progressive weakness, progressive weight loss -Unsure if all her symptoms can be explained by second-order pulmonary embolism and right upper lobe -CTA does show progressive disease -Ordered boost to be taken twice a week (otherwise patient states she gets diarrhea) FEN/GI: No further fluids indicated at this time, heart healthy diet DVT ppx: IV heparin for pulmonary embolism CODE STATUS: DNR/DNI as discussed with patient and her daughter at bedside. DISPO: Med telemetry (2) Nasal mass: Unsure of etiology, reviewed face CT. -Recommend outpatient ENT follow-up. Discharge planning ordered. (3) Hypoxia: As above (4) Metastatic disease: Consult oncology (5) Hypertension: Continue home medications carvedilol 25 mg twice daily, diltiazem 180 mg d aily, Cozaar 100 mg daily (6) CHF (congestive heart failure): Chest x-ray and exam not consistent with fluid overload at this time. Would recommend to be conservative with fluids. (7) Atrial fibrillation: Currently in sinus on monitoring. Home Eliquis held as above. Home medications continued including carvedilol and diltiazem. No acute issues. (8) Primary cancer of left upper lobe of lung: Progressive, oncology consulted for management of pulmonary embolism. 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 (10) Chronic hypercapnic respiratory failure: Patient is currently at her baseline of oxygen dependency. ABG was not able to be obtained. Therefore canceled. Monitor for signs of altered mental status although patient is mentally at baseline as confirmed by her daughter at bedside today. Continue home inhalers Xopenex and Ventolin as needed. Continuous O2. (11) Non-occlusive coronary artery disease: Continue home statin. History of Present Illness Chief Complaint: Shortness of breath Primary Care Provider: Lilliana Yeung DO This is a 77-year-old female who presents to the emergency room due to shortness of breath and found to have right upper lobe pulmonary embolus. She is here with her daughter. She reports nonspecific symptoms like feeling weak, increased dyspnea on exertion, chest tightness for the past few days in her home. Patient's daughter went and checked on her earlier today and said her oxygen level read in the 90s and she was at her baseline oxygen use which is 4- 1/2 L. She was brought in for further evaluation. Of note denies syncope, chest pain, visual changes, headache, dysphagia, abdominal pain. Does have occasional constipation. Denies calf pain. Is relatively mobile as she can be although her oxygen tank does limit her she says. PMH 1. Nonischemic cardiomyopathy with recovered LV function 2. Nonobstructive CAD 3. Atrial dysrhythmias, on Eliquis 4. Hypertension 5. Dyslipidemia 6. Thyroid carcinoma, papillary-being managed conservatively 7. Lung adenocarcinoma, with moderately differentiated squamous cell carcinoma, poor surgical candidate, status post radiation therapy 8. Home O2 dependent, baseline 4 L. 9. COPD PSH 1. Renal artery stenosis, s/p stent in RT renal a, 2013 2. cardiac catheterization showing nonocclusive disease Social history: Lives at home, baseline home O2 dependent 4.5 L, smokes 1-2 cigarettes/day. Denies alcohol or drug use. Patient's daughter says she has a living well. . Allergies Allergy/AdvReac Type Severity Reaction Status Date / Time bee venom protein (honey bee) Allergy Intermediate Hives and Verified 05/07/18 18:32 swelling lisinopril Allergy Intermediate cough Verified 05/07/18 18:32 Home Medications Home Medications Medication Instructions Recorded Confirmed Type acetaminophen [Tylenol Extra 1,000 mg PO Q6H PRN 03/22/18 05/07/18 History Strength] apixaban [Eliquis] 5 mg PO BID 03/22/18 05/07/18 History carvedilol [Coreg] 25 mg PO BID 03/22/18 05/07/18 History diltiazem HCl [Taztia XT] 180 mg PO DAILY 03/22/18 05/07/18 History furosemide [Lasix] 20 mg PO DAILY PRN 03/22/18 05/07/18 History ipratropium bromide 1 unit INHALATION Q6H 03/22/18 05/07/18 History losartan [Cozaar] 100 mg PO DAILY 03/22/18 05/07/18 History pravastatin [Pravachol] 20 mg PO DAILY 03/22/18 05/07/18 History albuterol sulfate [Ventolin HFA] 1 - 2 puff INHALATION Q6H PRN 05/07/18 05/07/18 History levalbuterol HCl [Xopenex] 1.25 mg INHALATION TID 05/07/18 05/07/18 History Past Med/Surg History Medical History Lung cancer (Chronic) Hypertension (Chronic) CHF (congestive heart failure) (Chronic) Atrial fibrillation (Chronic) Heart disease (Chronic) HTN (hypertension) (Chronic) Bronchitis (Resolved) Emphysema lung (Chronic) A-fib (Chronic) History of stent insertion of renal artery (Chronic) Surgical History No pertinent past surgical history Family History Other FHx: cancer FHx: heart disease FHx: hypertension Social History Feels Safe at Home: Yes Smoking Status: Former smoker Review of Systems All systems reviewed & are unremarkable except as noted in HPI & below Physical Exam Vital Signs (Past 24 Hours): Last Vital Signs Temp 36.4 C L 05/07/18 17:30 Pulse 76 05/07/18 19:00 Resp 13 03/10/19 19:00 BP 162/89 H 05/07/18 19:00 Pulse Ox 100 05/07/18 19:00 Physical Exam: Accompanied by daughter. Vitals noted as above and within normal limits with the exception of hypertension. GENERAL: Awake, alert to person, place, and time, nontoxic-appearing, in no distress HENT: Normocephalic, atraumatic. Oxymask in place. Mucus membranes appear moist. Soft tissue mass in left nare, examination limited due to tenderness. Crusting at base of nose. Clear rhinorrhea. Dried blood in nares. EYES: Normal conjunctiva. Sclera non-icteric. EOMI. NECK: Supple. Full range of motion. No JVD RESPIRATORY: Decreased breath sounds bilaterally. Normal work of breathing. CARDIAC: Regular rate, normal rhythm. Extremities warm and well perfused, 2+ radial pulses bilaterally; 2+ posterior tibialis pulses bilaterally. ABDOMEN: Soft, non-distended. No tenderness to palpation in all four quadrants. No rebound or guarding. No masses. Bowel sounds are normal. LOWER EXTREMITIES: Inspection of calves reveal equal size bilaterally. They are non-tender. No edema. No discoloration. NEURO: No focal gross focal motor deficits noted. Sensation in tact. CN II-XII grossly in tact. SKIN: Rash not present. No jaundice noted. PSYCH: Appropriate mood and affect. Cooperative. Exam as done by Arminda Irizarry MD, Performance Specialist. Results & Data Laboratory Results 05/07/18 05/07/18 05/07/18 Range/Units 19:40 18:02 17:38 WBC (4.8-10.8) K/uL RBC (4.2-5.4) M/uL Hgb (12.0-16.0) g/dL POC Hgb 13.6 (12.0-16.0) g/dl Hct (37-47) % POC Hct 40 (37-47) % MCV (80-100) fL MCH (25-34) pg MCHC (32-36) g/dL RDW Std Deviation (36.4-46.3) fL RDW Coeff of Napoleon (11.5-14.5) % Plt Count (130-400) K/uL MPV (7.4-10.4) fL Immature Gran % (Auto) % Neut % (Auto) % Lymph % (Auto) % [place] % (Auto) % Eos % (Auto) % Baso % (Auto) % Immature Gran # (Auto) (0.00-0.02) K/uL Neut # (Auto) (1.4-6.5) K/uL Lymph # (Auto) (1.2-3.4) K/uL [place] # (Auto) (0.11-0.59) K/uL Eos # (Auto) (0-0.5) K/uL Baso # (Auto) (0-0.2) K/uL PT 11.0 (9.0-12.0) Seconds INR 1.1 (0.9-1.1) APTT 31.6 H (21.0-31.0) Seconds PTT Ratio 1.2 POC Sodium 132 L (135-144) mEq/L Sodium (136-145) mmol/L POC Potassium 4.2 (3.3-5.0) mEq/L Potassium (3.5-5.1) mmol/L POC Chloride 80 L (101-112) mEq/L Chloride (98-107) mmol/L Carbon Dioxide (21-32) mmol/L POC Total CO2 > 40 H* (24-31) mEq/l Anion Gap (3-11) POC Anion Gap 13.0 L (16-25) mmol/L POC BUN 9 (7-18) mg/dl BUN (7-18) mg/dl Creatinine (0.6-1.2) mg/dl POC Creatinine 0.5 L (0.6-1.3) mg/dl Est Cr Clr Drug Dosing ml/min Est GFR ( Amer) Est GFR (Non-Af Amer) BUN/Creatinine Ratio (10-20) Glucose (70-99) mg/dl POC Glucose (other) 109 H (70-99) mg/dl Calcium (8.5-10.1) mg/dl POC Ioniz Calcium Perla 1.12 (1.12-1.32) mmol/l Total Bilirubin (0.2-1) mg/dl AST (15-37) U/L ALT (12-78) U/L Alkaline Phosphatase (45-117) U/L Total Creatine Kinase (26-192) U/L CK-MB (CK-2) (0.5-3.6) ng/ml CK/CKMB % Calc (0-3.0) Troponin I (0-0.045) ng/ml Total Protein (6.4-8.2) gm/dl Albumin (3.4-5.0) gm/dl Globulin (2.5-4.0) gm/dl Albumin/Globulin Ratio (0.9-2) Lipase (73-393) U/L Urine Color Yellow Urine Appearance Cloudy H (Clear) Urine pH 8.5 H (4.5-7.5) Ur Specific Dexter 1.033 H (1.000-1.030) Urine Protein Negative (Negative) Urine Glucose (UA) Negative (Negative) Urine Ketones Negative (Negative) Urine Blood Trace H (Negative) Urine Nitrite Positive H (Negative) Urine Bilirubin Negative (Negative) Urine Urobilinogen Negative (Negative) Ur Leukocyte Esterase 2+ H (Negative) Urine WBC (Auto) 5-10 H (0-5) /hpf Urine RBC (Auto) 0-4 (0-4) /hpf U Hyaline Cast (Auto) 0 (0-5) /lpf U Epithel Cells (Auto) 5-10 H (0-5) /lpf Urine Bacteria (Auto) 3+ H (Negative) 05/07/18 05/07/18 Range/Units 17:38 17:38 WBC 4.58 L (4.8-10.8) K/uL RBC 4.30 (4.2-5.4) M/uL Hgb 13.0 (12.0-16.0) g/dL POC Hgb (12.0-16.0) g/dl Hct 38.4 (37-47) % POC Hct (37-47) % MCV 89.3 (80-100) fL MCH 30.2 (25-34) pg MCHC 33.9 (32-36) g/dL RDW Std Deviation 39.1 (36.4-46.3) fL RDW Coeff of Napoleon 12.2 (11.5-14.5) % Plt Count 166 (130-400) K/uL MPV 10.0 (7.4-10.4) fL Immature Gran % (Auto) 0.2 % Neut % (Auto) 58.2 % Lymph % (Auto) 22.9 % [place] % (Auto) 16.8 % Eos % (Auto) 1.7 % Baso % (Auto) 0.2 % Immature Gran # (Auto) 0.01 (0.00-0.02) K/uL Neut # (Auto) 2.66 (1.4-6.5) K/uL Lymph # (Auto) 1.05 L (1.2-3.4) K/uL [place] # (Auto) 0.77 H (0.11-0.59) K/uL Eos # (Auto) 0.08 (0-0.5) K/uL Baso # (Auto) 0.01 (0-0.2) K/uL PT (9.0-12.0) Seconds INR (0.9-1.1) APTT (21.0-31.0) Seconds PTT Ratio POC Sodium (135-144) mEq/L Sodium 132 L (136-145) mmol/L POC Potassium (3.3-5.0) mEq/L Potassium 4.3 (3.5-5.1) mmol/L POC Chloride (101-112) mEq/L Chloride 86 L (98-107) mmol/L Carbon Dioxide 43 H* (21-32) mmol/L POC Total CO2 (24-31) mEq/l Anion Gap 3.0 (3-11) POC Anion Gap (16-25) mmol/L POC BUN (7-18) mg/dl BUN 9 (7-18) mg/dl Creatinine 0.38 L (0.6-1.2) mg/dl POC Creatinine (0.6-1.3) mg/dl Est Cr Clr Drug Dosing 95.1 ml/min Est GFR ( Amer) 120.1 Est GFR (Non-Af Amer) 103.6 BUN/Creatinine Ratio 24.7 H (10-20) Glucose 106 H (70-99) mg/dl POC Glucose (other) (70-99) mg/dl Calcium 9.0 (8.5-10.1) mg/dl POC Ioniz Calcium Perla (1.12-1.32) mmol/l Total Bilirubin 0.5 (0.2-1) mg/dl AST 19 (15-37) U/L ALT 27 (12-78) U/L Alkaline Phosphatase 53 (45-117) U/L Total Creatine Kinase 43 (26-192) U/L CK-MB (CK-2) 1.4 (0.5-3.6) ng/ml CK/CKMB % Calc 3.3 H (0-3.0) Troponin I < 0.015 (0-0.045) ng/ml Total Protein 7.1 (6.4-8.2) gm/dl Albumin 3.8 (3.4-5.0) gm/dl Globulin 3.3 (2.5-4.0) gm/dl Albumin/Globulin Ratio 1.2 (0.9-2) Lipase 87 (73-393) U/L Urine Color Urine Appearance (Clear) Urine pH (4.5-7.5) Ur Specific Dexter (1.000-1.030) Urine Protein (Negative) Urine Glucose (UA) (Negative) Urine Ketones (Negative) Urine Blood (Negative) Urine Nitrite (Negative) Urine Bilirubin (Negative) Urine Urobilinogen (Negative) Ur Leukocyte Esterase (Negative) Urine WBC (Auto) (0-5) /hpf Urine RBC (Auto) (0-4) /hpf U Hyaline Cast (Auto) (0-5) /lpf U Epithel Cells (Auto) (0-5) /lpf Urine Bacteria (Auto) (Negative) Diagnostic Findings Chest CTA 05/07/2018 shows progressive bilateral nodularity suggesting progressive metastatic change. Stable emphysema. Small second-order pulmonary embolus involving the right upper lobe. No significant emboli in major central vessels. Face CT 05/07/2018 shows major sinuses are clear. Mild hyperplastic changes in the nasal turbinates as well as anterior nasal septum, configuration recommended if a potential mass is present. Major bony structures intact, no destructive process. Orbital margins intact. Head CT 05/07/2018 shows no masses or lesions or acute changes. Age-related change. Medications Administered Xopenex and 500 mL of normal saline. Code Status & VTE Plan Code Status DNR/DNI Supervising Physician Co-Signing Physician Notes Attending addendum: I have physically seen this patient, have supervised the medical residents activities, and agree with the H&P unless as otherwise noted. Assessment and Plan: Acute on chronic respiratory failure with hypoxia/worsening metastatic lung disease/small second-order pulmonary embolism right upper lobe-- Suspect symptoms are more related to underlying progression of lung cancer than due to PE. However, change Eliquis to heparin IV for tonight, and have hematology/oncology reassess in the a.m. Order lower extremity venous Dopplers. Duonebs every 4 hours while awake and every 2 hours when necessary. Check an ABG. Atrial fibrillation/hypertension-- Continue carvedilol, diltiazem, furosemide and losartan with hold parameters. Had previously been on Eliquis for the A. fib, but as noted above, for tonight change management facilitator IV heparin until results of further studies are in. Nasal mass-- Biopsy as an outpatient. Remainder of orders and notations as noted. Resident Activity Tracking Resident Involvement: Resident Care Provided Care Provided: Adult Hospital Medicine (1) Pulmonary embolism Acute cor pulmonale presence: without acute cor pulmonale Chronicity: acute Pulmonary embolism type: unspecified Qualified Code(s): I26.99 - Other pulmonary embolism without acute cor pulmonale
[2018-05-07 19:56] LABS: INR 1.1 (0.9-1.1); Partial Thromboplastin Ratio 1.2; Partial Thromboplastin Time 31.6 Seconds (21.0-31.0)
[2018-05-07 20:10] LABS: Appearance Urine Cloudy (Clear); Bacteria Urine Automated 3+ (Negative); Bilirubin Urine Negative (Negative); Blood Urine Trace (Negative); Cast Urine Automated 0 /lpf (0-5); Color Urine Yellow; Glucose Urine UA Negative (Negative); Ketones Urine Negative (Negative); Leukocyte Esterase Urine 2+ (Negative); Nitrite Urine Positive (Negative); Protein Urine Negative (Negative); RBC Urine Automated 0-4 /hpf (0-4); Specific Gravity Urine 1.033 (1.000-1.030); Urobilinogen Urine Negative (Negative); pH Urine 8.5 (4.5-7.5)
--- NOTE | 2018-05-07 21:16 | Ultrasound Report ---
US venous doppler LE BI HISTORY: Pain. Edema. Pt c/o PE COMPARISON STUDY: None. FINDINGS: There is normal compressibility, flow, and augmentation within the bilateral lower extremit y deep venous systems. IMPRESSION: No DVT within the right or left lower extremity. The above report was generated using voice recognition software. It may contain grammatical, syntax or spelling errors. Electronically signed by: Bentley Quinn M.D. 05/07/2018 9:15 PM
[2018-05-07] MEDS ORDERED: FUROSEMIDE 20 MG TAB PO PRN (21:59)
[2018-05-07] MEDS ORDERED: IPRATROPIUM BROMIDE NEB SOLN 0.02% 2.5 ML VIAL INH SCH (21:59)
[2018-05-07] MEDS ORDERED: ACETAMINOPHEN 500 MG TAB PO PRN (21:59)
[2018-05-07] MEDS ORDERED: ALBUTEROL HFA 8 GM INHALER INH PRN (21:59)
[2018-05-07] MEDS ORDERED: Heparin IV Standard *NO* Bolus IV SCH (22:15)
[2018-05-07] MEDS ORDERED: HEPARIN STANDARD DEXTROSE 25,000 UNITS/500 ML IV SCH (22:45)
[2018-05-07] MEDS: NITROFURANTOIN MONOHYDRATE 100 MG CAP PO SCH (23:03)
[2018-05-07] MEDS: CARVEDILOL 25 MG TAB PO SCH (23:03)
[2018-05-07] MEDS: IPRATROPIUM BROMIDE NEB SOLN 0.02% 2.5 ML VIAL INH SCH (23:17)
[2018-05-07] MEDS: LEVALBUTEROL HCL 1.25 MG/3 ML NEB INH SCH (23:17)
--- NOTE | 2018-05-07 23:43 | Emergency Department Note ---
Entered by Hamlet Daniel acting as a scribe for History of Present Illness General Chief complaint: Shortness of Breath/Dyspnea Stated complaint: SOB, ILLNESS, WEAKNESS Time Seen by Provider: 05/07/18 17:41 Source: patient History of Present Illness Onset (ago): day(s) (few) Location: face (nose) Severity: similar to prior episodes Pain Consistency: + constant Quality: + other (discomfort while breathing) Associated symptoms: + other (weakness, tired, shortness of breath) The patient is a 77 year old female who presents to the Emergency Room with complaints of constant discomfort in her nose while breathing beginning a few days ago. The patient's daughter states the patient has been on 5L oxygen for the past 1.5 years. She reports for the past year, the patient has had trouble with her nostrils and nose. The daughter notes the patient was told her symptoms were caused by a variety of different things, all of which they tried correcting. She states the patient was given steroid cream for impetigo, and it helped. The daughter reports the patient was here 1.5 months ago for similar symptoms with shortness of breath and mucus/sinus drainage. She notes the patient has been complaining of pain in her nose, weakness, and being tired. The daughter states the patient last saw her ENT in October for a thyroid issue. She reports the patient has a history of lung cancer a few years ago. The daughter notes the patient has a history of smoking, but she has stopped. Home Medications Home Medications Medication Instructions Recorded Confirmed Type acetaminophen [Tylenol Extra 1,000 mg PO Q6H PRN 03/22/18 05/07/18 History Strength] apixaban [Eliquis] 5 mg PO BID 03/22/18 05/07/18 History carvedilol [Coreg] 25 mg PO BID 03/22/18 05/07/18 History diltiazem HCl [Taztia XT] 180 mg PO DAILY 03/22/18 05/07/18 History furosemide [Lasix] 20 mg PO DAILY PRN 03/22/18 05/07/18 History ipratropium bromide 1 unit INHALATION Q6H 03/22/18 05/07/18 History losartan [Cozaar] 100 mg PO DAILY 03/22/18 05/07/18 History pravastatin [Pravachol] 20 mg PO DAILY 03/22/18 05/07/18 History albuterol sulfate [Ventolin HFA] 1 - 2 puff INHALATION Q6H PRN 05/07/18 05/07/18 History levalbuterol HCl [Xopenex] 1.25 mg INHALATION TID 05/07/18 05/07/18 History Allergies Allergy/AdvReac Type Severity Reaction Status Date / Time bee venom protein (honey bee) Allergy Intermediate Hives and Verified 05/07/18 18:32 swelling lisinopril Allergy Intermediate cough Verified 05/07/18 18:32 Past Med/Surg History Medical History Lung cancer (Chronic) Hypertension (Chronic) CHF (congestive heart failure) (Chronic) Atrial fibrillation (Chronic) Heart disease (Chronic) HTN (hypertension) (Chronic) Bronchitis (Resolved) Emphysema lung (Chronic) A-fib (Chronic) History of stent insertion of renal artery (Chronic) Surgical History No pertinent past surgical history Family History Other FHx: cancer FHx: heart disease FHx: hypertension Social History Feels Safe at Home: Yes Smoking Status: Former smoker Review of Systems See HPI for pertinent positives & negatives. and A total of 10 systems reviewed and were otherwise negative Physical Exam Vital Signs Vital Signs - 24 hr 05/07/18 17:29 05/07/18 17:30 05/07/18 17:31 Temperature 36.4 C L Temperature Source Oral Sepsis Recent Fever Within 48 Hours No Sepsis New/Unexplained Change in Mental Status No Sepsis Action Taken by Nursing No Action Required Pulse Rate 92 H 81 Pulse Rate [Left Finger] Pulse Rate from SpO2 Sensor 81 Pulse Rhythm Regular Pulse Strength Normal Respiratory Rate 23 25 H Respiratory Effort / Characteristics Non-Labored Spontaneous Respiratory Depth Normal Respiratory Pattern Regular Blood Pressure 161/96 H 161/96 H Blood Pressure [Right Arm] Blood Pressure Mean 117 117 Blood Pressure Mean [Right Arm] Blood Pressure Position Sitting Pulse Oximetry 4 L 100 100 Oxygen Delivery Method Room Air Non-rebreather Oxygen Flow Rate 11 05/07/18 17:39 05/07/18 18:01 05/07/18 18:10 Temperature Temperature Source Sepsis Recent Fever Within 48 Hours Sepsis New/Unexplained Change in Mental Status Sepsis Action Taken by Nursing Pulse Rate 82 80 Pulse Rate [Left Finger] 80 Pulse Rate from SpO2 Sensor 81 80 Pulse Rhythm Pulse Strength Respiratory Rate 32 H 31 H 24 Respiratory Effort / Characteristics Non-Labored Spontaneous Respiratory Depth Respiratory Pattern Blood Pressure Blood Pressure [Right Arm] Blood Pressure Mean Blood Pressure Mean [Right Arm] Blood Pressure Position Pulse Oximetry 100 100 98 Oxygen Delivery Method Oxymask Oxygen Flow Rate 4 05/07/18 19:00 05/07/18 21:25 Temperature Temperature Source Sepsis Recent Fever Within 48 Hours Sepsis New/Unexplained Change in Mental Status Sepsis Action Taken by Nursing Pulse Rate 77 78 Pulse Rate [Left Finger] 76 Pulse Rate from SpO2 Sensor 77 Pulse Rhythm Pulse Strength Respiratory Rate 12 15 Respiratory Effort / Characteristics Respiratory Depth Respiratory Pattern Blood Pressure 162/89 H 166/79 H Blood Pressure [Right Arm] 162/89 H Blood Pressure Mean 113 Blood Pressure Mean [Right Arm] 113 Blood Pressure Position Pulse Oximetry 99 98 Oxygen Delivery Method Oxymask Oxymask Oxygen Flow Rate 4 4 GENERAL: Awake, alert, Cachectic-appearing, in no distress HENT: Normocephalic, atraumatic. Oropharynx unremarkable. EYES: Normal conjunctiva. Sclera non-icteric. NECK: Supple. No nuchal rigidity. FROM. No masses. RESPIRATORY: Clear to auscultation. Wheezes bilaterally. No rales. Normal respiratory effort. CARDIAC: Normal rate. Normal rhythm. No murmurs. No rubs. Extremities warm and well perfused. Pulses equal. No JVD. GI: Soft, non-distended. No tenderness to palpation. No rebound or guarding. No masses. RECTAL: Deferred. MUSCULOSKELETAL: Atraumatic. Chest examination reveals no tenderness. The back is symmetrical on inspection without obvious abnormality. There is no CVA tenderness to palpation. No joint edema. LOWER EXTREMITIES: Calves are equal size bilaterally and non-tender. No edema. No discoloration. NEURO: Normal sensorium. No sensory or motor deficits noted. Course 1748: Past medical records reviewed. The patient was evaluated in room C06, and a complete history and physical examination were performed. 1851: I reevaluated the patient and discussed the findings with her. She verbalized agreement to a hospitalist evaluation and the treatment plan. The patient will be evaluated for further management and care. 1911: I reviewed the patient's case with Dr. Aparicio, [facility] Hospitalist. He will evaluate the patient for further management. Administered Medications Carvedilol (Coreg) 25 mg PO BID JANEE Stop: 06/06/18 22:59 Last Admin: 05/07/18 23:03 Dose: 25 mg Documented by: [id number] Heparin Sodium/Dextrose (Heparin Sodium/Dextrose) 25,000 units in 500 mls @ 17 mls/hr IV .Q24H JANEE; Protocol Stop: 06/06/18 22:44 Last Admin: 05/07/18 22:57 Dose: 850 units/hr, 17 mls/hr Documented by: [id number] Cosigned by: [id number] Ioversol (Optiray 320 125ml) 116 ml IV ONCE PRN PRN Reason: Interaction Checking Stop: 05/11/18 18:27 Last Admin: 05/07/18 18:28 Dose: 116 ml Documented by: [id number] Ipratropium [place] (Atrovent 0.02% 0.5mg/2.5ml) 0.5 mg INH TIDR JANEE Stop: 06/06/18 22:59 Last Admin: 05/07/18 23:17 Dose: Not Given Documented by: [id number] Levalbuterol HCl (Xopenex 1.25mg/3ml Neb) 1.25 mg INH TIDR JANEE Stop: 06/06/18 22:59 Last Admin: 05/07/18 23:17 Dose: Not Given Documented by: [id number] Nitrofurantoin Macrocrystals (Macrobid) 100 mg PO BID JANEE Stop: 05/12/18 22:59 Last Admin: 05/07/18 23:03 Dose: 100 mg Documented by: [id number] Discontinued Medications Sodium Chloride (Nss) 500 mls @ 999 mls/hr IV .Q31M ONE Stop: 05/07/18 18:21 Last Infusion: 05/07/18 19:57 Dose: 0 mls/hr Documented by: [id number] Admin: 05/07/18 18:16 Dose: 999 mls/hr Documented by: [id number] Levalbuterol HCl (Xopenex 1.25mg/0.5ml Neb) 1.25 mg NEB NOW STA Stop: 05/07/18 17:50 Last Admin: 05/07/18 18:10 Dose: 1.25 mg Documented by: [id number] Medical Decision Making Differential Diagnosis Differential diagnoses includes but is not limited to pneumonia, bronchitis, COPD/Asthma exacerbation, pneumothorax, pulmonary embolism, congestive heart failure, acute coronary syndrome Medical Records Attestation: I reviewed the patient's medical records. Home Medications Current Medication List: was personally reviewed by me Laboratory Data Attestation: I reviewed the patient's lab results. Result diagrams: 05/07/18 17:38 05/07/18 17:38 Lab Results 05/07/18 05/07/18 05/07/18 Range/Units 17:38 17:38 17:38 WBC 4.58 L (4.8-10.8) K/uL RBC 4.30 (4.2-5.4) M/uL Hgb 13.0 (12.0-16.0) g/dL POC Hgb (12.0-16.0) g/dl Hct 38.4 (37-47) % POC Hct (37-47) % MCV 89.3 (80-100) fL MCH 30.2 (25-34) pg MCHC 33.9 (32-36) g/dL RDW Std Deviation 39.1 (36.4-46.3) fL RDW Coeff of [place] 12.2 (11.5-14.5) % Plt Count 166 (130-400) K/uL MPV 10.0 (7.4-10.4) fL Immature Gran % (Auto) 0.2 % Neut % (Auto) 58.2 % Lymph % (Auto) 22.9 % Bowie % (Auto) 16.8 % Eos % (Auto) 1.7 % Baso % (Auto) 0.2 % Immature Gran # (Auto) 0.01 (0.00-0.02) K/uL Neut # (Auto) 2.66 (1.4-6.5) K/uL Lymph # (Auto) 1.05 L (1.2-3.4) K/uL Bowie # (Auto) 0.77 H (0.11-0.59) K/uL Eos # (Auto) 0.08 (0-0.5) K/uL Baso # (Auto) 0.01 (0-0.2) K/uL PT 11.0 (9.0-12.0) Seconds INR 1.1 (0.9-1.1) APTT 31.6 H (21.0-31.0) Seconds PTT Ratio 1.2 POC Sodium (135-144) mEq/L Sodium 132 L (136-145) mmol/L POC Potassium (3.3-5.0) mEq/L Potassium 4.3 (3.5-5.1) mmol/L POC Chloride (101-112) mEq/L Chloride 86 L (98-107) mmol/L Carbon Dioxide 43 H* (21-32) mmol/L POC Total CO2 (24-31) mEq/l Anion Gap 3.0 (3-11) POC Anion Gap (16-25) mmol/L POC BUN (7-18) mg/dl BUN 9 (7-18) mg/dl Creatinine 0.38 L (0.6-1.2) mg/dl POC Creatinine (0.6-1.3) mg/dl Est Cr Clr Drug Dosing 95.1 ml/min Est GFR ( Amer) 120.1 Est GFR (Non-Af Amer) 103.6 BUN/Creatinine Ratio 24.7 H (10-20) Glucose 106 H (70-99) mg/dl POC Glucose (other) (70-99) mg/dl Calcium 9.0 (8.5-10.1) mg/dl POC Ioniz Calcium Perla (1.12-1.32) mmol/l Total Bilirubin 0.5 (0.2-1) mg/dl AST 19 (15-37) U/L ALT 27 (12-78) U/L Alkaline Phosphatase 53 (45-117) U/L Total Creatine Kinase 43 (26-192) U/L CK-MB (CK-2) 1.4 (0.5-3.6) ng/ml CK/CKMB % Calc 3.3 H (0-3.0) Troponin I < 0.015 (0-0.045) ng/ml Total Protein 7.1 (6.4-8.2) gm/dl Albumin 3.8 (3.4-5.0) gm/dl Globulin 3.3 (2.5-4.0) gm/dl Albumin/Globulin Ratio 1.2 (0.9-2) Lipase 87 (73-393) U/L Urine Color Urine Appearance (Clear) Urine pH (4.5-7.5) Ur Specific [place] (1.000-1.030) Urine Protein (Negative) Urine Glucose (UA) (Negative) Urine Ketones (Negative) Urine Blood (Negative) Urine Nitrite (Negative) Urine Bilirubin (Negative) Urine Urobilinogen (Negative) Ur Leukocyte Esterase (Negative) Urine WBC (Auto) (0-5) /hpf Urine RBC (Auto) (0-4) /hpf U Hyaline Cast (Auto) (0-5) /lpf U Epithel Cells (Auto) (0-5) /lpf Urine Bacteria (Auto) (Negative) 05/07/18 05/07/18 Range/Units 18:02 19:40 WBC (4.8-10.8) K/uL RBC (4.2-5.4) M/uL Hgb (12.0-16.0) g/dL POC Hgb 13.6 (12.0-16.0) g/dl Hct (37-47) % POC Hct 40 (37-47) % MCV (80-100) fL MCH (25-34) pg MCHC (32-36) g/dL RDW Std Deviation (36.4-46.3) fL RDW Coeff of [place] (11.5-14.5) % Plt Count (130-400) K/uL MPV (7.4-10.4) fL Immature Gran % (Auto) % Neut % (Auto) % Lymph % (Auto) % Bowie % (Auto) % Eos % (Auto) % Baso % (Auto) % Immature Gran # (Auto) (0.00-0.02) K/uL Neut # (Auto) (1.4-6.5) K/uL Lymph # (Auto) (1.2-3.4) K/uL Bowie # (Auto) (0.11-0.59) K/uL Eos # (Auto) (0-0.5) K/uL Baso # (Auto) (0-0.2) K/uL PT (9.0-12.0) Seconds INR (0.9-1.1) APTT (21.0-31.0) Seconds PTT Ratio POC Sodium 132 L (135-144) mEq/L Sodium (136-145) mmol/L POC Potassium 4.2 (3.3-5.0) mEq/L Potassium (3.5-5.1) mmol/L POC Chloride 80 L (101-112) mEq/L Chloride (98-107) mmol/L Carbon Dioxide (21-32) mmol/L POC Total CO2 > 40 H* (24-31) mEq/l Anion Gap (3-11) POC Anion Gap 13.0 L (16-25) mmol/L POC BUN 9 (7-18) mg/dl BUN (7-18) mg/dl Creatinine (0.6-1.2) mg/dl POC Creatinine 0.5 L (0.6-1.3) mg/dl Est Cr Clr Drug Dosing ml/min Est GFR ( Amer) Est GFR (Non-Af Amer) BUN/Creatinine Ratio (10-20) Glucose (70-99) mg/dl POC Glucose (other) 109 H (70-99) mg/dl Calcium (8.5-10.1) mg/dl POC Ioniz Calcium Perla 1.12 (1.12-1.32) mmol/l Total Bilirubin (0.2-1) mg/dl AST (15-37) U/L ALT (12-78) U/L Alkaline Phosphatase (45-117) U/L Total Creatine Kinase (26-192) U/L CK-MB (CK-2) (0.5-3.6) ng/ml CK/CKMB % Calc (0-3.0) Troponin I (0-0.045) ng/ml Total Protein (6.4-8.2) gm/dl Albumin (3.4-5.0) gm/dl Globulin (2.5-4.0) gm/dl Albumin/Globulin Ratio (0.9-2) Lipase (73-393) U/L Urine Color Yellow Urine Appearance Cloudy H (Clear) Urine pH 8.5 H (4.5-7.5) Ur Specific [place] 1.033 H (1.000-1.030) Urine Protein Negative (Negative) Urine Glucose (UA) Negative (Negative) Urine Ketones Negative (Negative) Urine Blood Trace H (Negative) Urine Nitrite Positive H (Negative) Urine Bilirubin Negative (Negative) Urine Urobilinogen Negative (Negative) Ur Leukocyte Esterase 2+ H (Negative) Urine WBC (Auto) 5-10 H (0-5) /hpf Urine RBC (Auto) 0-4 (0-4) /hpf U Hyaline Cast (Auto) 0 (0-5) /lpf U Epithel Cells (Auto) 5-10 H (0-5) /lpf Urine Bacteria (Auto) 3+ H (Negative) Imaging Data Radiologist's Impression: Radiology results as stated below per my review and the radiologist's interpretation: CT angio chest PE protocol CT DOSE: 866.34 mGy.cm HISTORY: Dyspnea Chest Pain, eval for PE TECHNIQUE: Multiaxial CT images of the chest were performed following the intravenous administration of contrast to evaluate the pulmonary arteries. Maximal intensity projection images were also obtained. A dose lowering technique was utilized adhering to the principles of ALARA. COMPARISON STUDY: 05/03/2017 FINDINGS: The thoracic aorta shows mild atherosclerotic change. No well-defined evidence for aneurysm or dissection. Diameter of the a sending aorta is 3.5 cm at maximum. There are findings of progressive bilateral nodularity. There is a right anterior perihilar nodule measuring 2.5 x 1.5 cm. This is also associated with a small filling defect of a second order right upper lobe vessel best seen transaxial image 157 There is an interval or progressive left upper lobe nodule measuring 1.1 cm medially anterior to the major fissure. A pleural-based nodule associated vascular clip is slightly increased in prominence at 6 mm. There are findings of diffuse emphysematous change throughout both hemithoraces. This is unchanged. IMPRESSION: 1. Progressive nodularity bilaterally suggesting progressive metastatic change. 2. Stable emphysematous change. 3. Small second-order pulmonary embolus involving the right upper lobe. 4. Major central vessels show no significant embolus formation. The above report was generated using voice recognition software. It may contain grammatical, syntax or spelling errors. Electronically signed by: Bentley Quinn M.D. 05/07/2018 6:[address] head/brain wo con CT DOSE: HISTORY: Mental status change Pt c/o AMS TECHNIQUE: Multiaxial CT images of the head were performed without the use of intravenous contrast. A dose lowering technique was utilized adhering to the principles of ALARA. Comparison: 04/20/2007 Findings: The paranasal sinuses and mastoid air cells are clear. Mild components of chronic small vessel change are present. 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 Ventricular system is midline. No evidence for acute intracranial hemorrhage. Impression: Chronic and age-related change. No acute process. The above report was generated using voice recognition software. It may contain grammatical, syntax or spelling errors. Electronically signed by: Bentley Quinn M.D. 05/07/2018 6:34 PM Study: CT maxillofacial region HISTORY: Mass. Prior studies: None FINDINGS: All major sinuses are clear. The estimated units are patent bilaterally. There are mild hyperplastic changes the nasal turbinates as well as anterior nasal septum. Configuration is recommended if a potential mass is present. Major bony structures are intact with no evidence for bony destructive process. Orbital margins are intact. IMPRESSION: Hyperplastic changes the nasal turbinates with potential nodularity of the anterior nasal septum. Study is otherwise normal. Direct visualization/evaluation is recommended if a mass is present. Electronically signed by: Bentley Quinn M.D. 05/07/2018 6:37 PM ECG Data Attestation: I personally reviewed and interpreted this ECG as follows: Indication: SOB/dyspnea Rate (beats per minute): 79 Rhythm: normal sinus Findings: + other (Old septal infarct); no PAC, no PVC, no ST depression, no ST elevation, no acute ischemic change and no ectopy Blood Pressure Blood Pressure Findings: Elevated blood pressure Blood Pressure Disposition: further management by hospitalist [facility] Narrative This is a 77-year-old female who presents emergency department complaining of shortness of breath along with a growth to her nose. Because of the multiple complaints patient was sent for a CAT scan of the head as well as a CAT scan of the chest and face. She does appear to have a nasal mass on physical examination. She was given an hour-long breathing treatment here. The patient is on Eliquis and still has a blood clot. For this reason I did discuss the case with the hospitalist service who agreed to admit the patient. Patient and family were in agreement with the treatment plan. Impression & Plan Hypoxia, Pulmonary embolism, Metastatic disease Discharge Plan Visit Data *Final* Discharge Date/Time: 05/07/18 21:25 Chief Complaint: Shortness of Breath/Dyspnea Stated Complaint: SOB, ILLNESS, WEAKNESS ED Provider: Александр New Discharge Problem: Hypoxia, Pulmonary embolism, Metastatic disease Patient Disposition: Admitted As Inpatient Discharge Instructions Interventions: ED Discharge Assessment Last Done: 05/07/18 21:25 Discharge Problem: Pulmonary embolism Qualifiers: Pulmonary embolism type: unspecified Chronicity: acute Acute cor pulmonale presence: without acute cor pulmonale Qualified Code(s): I26.99 - Other pulmonary embolism without acute cor pulmonale The scribe's documentation has been prepared under my direction and personally reviewed by me in its entirety. I confirm that the note above accurately reflects all work, treatment, procedures, and medical decision making performed by me.
[2018-05-08 06:09] LABS: Basophils # (auto) 0.01 K/uL (0-0.2); Basophils % (auto) 0.2 %; Eosinophils # (auto) 0.08 K/uL (0-0.5); Eosinophils % (auto) 1.9 %; Hematocrit (blood only) 34.8 % (37-47); Hemoglobin 11.4 g/dL (12.0-16.0); Immature Granulocytes # (auto) 0.01 K/uL (0.00-0.02); Immature Granulocytes % (auto) 0.2 %; Lymphocytes # (auto) 1.25 K/uL (1.2-3.4); Lymphocytes % (auto) 29.4 %; Mean Corpuscular Hgb Conc 32.8 g/dL (32-36); Mean Corpuscular Volume 90.6 fL (80-100); Mean Platelet Volume 9.4 fL (7.4-10.4); Monocytes # (auto) 0.66 K/uL (0.11-0.59); Monocytes % (auto) 15.5 %; Neutrophils # (auto) 2.24 K/uL (1.4-6.5); Neutrophils % (auto) 52.8 %; Platelet Count 128 K/uL (130-400); RDW Coefficient of Variation 12.2 % (11.5-14.5); RDW Standard Deviation 40.1 fL (36.4-46.3); Red Blood Count 3.84 M/uL (4.2-5.4); White Blood Count 4.25 K/uL (4.8-10.8)
[2018-05-08 06:41] LABS: INR 1.1 (0.9-1.1); Partial Thromboplastin Ratio 2.6; Prothrombin Time 10.9 Seconds (9.0-12.0)
[2018-05-08 06:47] LABS: BUN Creatinine Ratio 21.9 (10-20); Calcium 8.6 mg/dl (8.5-10.1); Creatinine Clr Calc Pharmacy 111.8 ml/min; Est GFR (African American) 125.8; Est GFR (Non-African American) 108.5; Partial Thromboplastin Time 71.5 Seconds (21.0-31.0); Potassium 3.7 mmol/L (3.5-5.1)
[2018-05-08] MEDS: LEVALBUTEROL HCL 1.25 MG/3 ML NEB INH SCH ×2 (07:08→14:01)
[2018-05-08] MEDS: IPRATROPIUM BROMIDE NEB SOLN 0.02% 2.5 ML VIAL INH SCH ×2 (07:08→14:01)
[2018-05-08] MEDS ORDERED: INFLUENZA ADMINISTRATION CHARGE ONE (07:30)
[2018-05-08] MEDS ORDERED: INFLUENZA VACCINE HIGH DOSE 65+ 0.5 ML SYR IM ONE (07:30)
[2018-05-08] MEDS ORDERED: PNEUMOCOCCAL POLYSACCHARIDES 25 MCG/0.5 ML VIAL/SYR IM ONE (07:45)
[2018-05-08] MEDS ORDERED: PNEUMOCOCCAL ADMINISTRATION CHARGE ONE (07:45)
[2018-05-08] MEDS: CARVEDILOL 25 MG TAB PO SCH (07:52)
[2018-05-08] MEDS: NITROFURANTOIN MONOHYDRATE 100 MG CAP PO SCH (07:52)
[2018-05-08] MEDS ORDERED: PRAVASTATIN SOD 20 MG TAB PO SCH (09:00)
[2018-05-08] MEDS ORDERED: dilTIAZem ER 180 MG CAPCR PO SCH (09:00)
[2018-05-08] MEDS ORDERED: LOSARTAN POTASSIUM 50 MG TAB PO SCH (09:00)
[2018-05-08 11:55] VITALS: BP 139/77; TEMP 97.7; O2SAT 96
[2018-05-08 13:38] LABS: Partial Thromboplastin Ratio 2.3
[2018-05-08 14:08] VITALS: PULSE 77
[2018-05-08] MEDS ORDERED: ENOXAPARIN 1.5 MG/KG SQ SCH (14:15)
[2018-05-08 14:35] LABS: Partial Thromboplastin Time 63.3 Seconds (21.0-31.0)
[2018-05-08] MEDS ORDERED: ENOXAPARIN 80 MG/0.8 ML SYR SQ SCH (15:30)
--- NOTE | 2018-05-08 16:29 | Discharge Summary ---
Date of Service May 08, 2018 Admission HPI Per Admitting Provider This is a 77-year-old female who presents to the emergency room due to shortness of breath and found to have right upper lobe pulmonary embolus. She is here with her daughter. She reports nonspecific symptoms like feeling weak, increased dyspnea on exertion, chest tightness for the past few days in her home. Patient's daughter went and checked on her earlier today and said her oxygen level read in the 90s and she was at her baseline oxygen use which is 4- 1/2 L. She was brought in for further evaluation. Of note denies syncope, chest pain, visual changes, headache, dysphagia, abdominal pain. Does have occasional constipation. Denies calf pain. Is relatively mobile as she can be although her oxygen tank does limit her she says. PMH 1. Nonischemic cardiomyopathy with recovered LV function 2. Nonobstructive CAD 3. Atrial dysrhythmias, on Eliquis 4. Hypertension 5. Dyslipidemia 6. Thyroid carcinoma, papillary-being managed conservatively 7. Lung adenocarcinoma, with moderately differentiated squamous cell carcinoma, poor surgical candidate, status post radiation therapy 8. Home O2 dependent, baseline 4 L. 9. COPD PSH 1. Renal artery stenosis, s/p stent in RT renal a, 2013 2. cardiac catheterization showing nonocclusive disease Social history: Lives at home, baseline home O2 dependent 4.5 L, smokes 1-2 cigarettes/day. Denies alcohol or drug use. Patient's daughter says she has a living well. . Principal Diagnosis Acute Pulmonary Embolism Discharge Exam Constitutional well nourished ENMT Nose - marble size lump extending on both sides of the septum close to the nostril Respiratory normal respiratory effort Auscultation: + diminished lung sounds Cardiovascular RRR, no murmur, no edema Gastrointestinal (Abdomen) normal bowel sounds, soft, nontender, no hepatosplenomegaly Discharge Data Allergies Allergy/AdvReac Type Severity Reaction Status Date / Time lisinopril Allergy Intermediate cough Verified 05/07/18 18:32 bee venom protein (honey bee) AdvReac Intermediate Hives and Verified 05/08/18 07:07 swelling Consultations 05/07/18 19:04 ED Decision to Admit Stat 05/07/18 21:59 Consult Case Management - Discharge Planning Routine Consult Oncology Routine Ordered Studies 05/07/18 17:49 CT facial bones w con Stat CT head/brain wo con Stat 05/07/18 17:50 CT angio chest PE protocol Stat 05/07/18 19:12 US venous doppler LE BI Stat Hospital Course (1) Pulmonary embolism: . This is a 77-year-old female who presents to the emergency room due to shortness of breath and found to have right upper lobe pulmonary embolus. Pulmonary embolism as seen on CTA -Likely secondary to progressive lung cancer disease, -On Eliquis for her A. fib - No concern of compliance. started on IV heparin drip. Switched to Lovenox 1.5mg/kg daily dose and discharged home on it for senior care use. -will follow up with oncology as outpatient Progressive weakness, progressive weight loss -At baseline on discharge. Outpatient follow up. Nasal mass: -Outpatient ENT referral arranged - tomorrow. 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 Outpatient follow up. - home inhalers Xopenex and Ventolin as needed. Continuous O2. Chronic respiratory failure: -Home O2 at 4L. Hypertension: -Continued home medications carvedilol 25 mg twice daily, diltiazem 180 mg daily, Cozaar 100 mg daily Chronic Diastolic CHF (congestive heart failure): -stayed euvolemic. Chronic Atrial fibrillation: -Anticoagulation with lovenox now. Eliquis d/koby. continue carvedilol and diltiazem. Non-occlusive coronary artery disease: Continue home statin, coreg, cozaar. Total Time Total Time Spent Total Time Spent (In Minutes): 35 min Discharge Plan Discharge Items Patient Disposition: Home - Home Health Services Reason For Visit: PE Discharge Diagnosis: Pulmonary Embolism Discharge Goals: Decrease discomfort Activity: Resume your previous activity Non-emergency contact: Primary Care Provider Call non-emergency contact if: you have any medication questions Follow-up/Referrals: Lilliana Yeung DO [Primary Care Provider] - 05/12/18 10:45 am (Please, follow up at Dr. Yeung's office (next to [employer]) with her associate, Manuelito BARBOSA, on TuesdayMay 12 at 11:00 am (arrive 10:45 am). *If you need to change this appointment, call the office at [phone].) Eduardo Catalan MD, FAAOA [Physician] - 05/09/18 1:10 pm (Please, follow up at [facility] (ENT) Office with Dr. Eduardo Catalan, on TuesdayMay 09 at 1:10 pm. ) Diet: Regular Addtl Provider Instructions: You were diagnosed with pulmonary embolism - clots in your lungs. Since you were already on a blood thinner - Eliquis and seems like it didn't work, we will be sending you home on Lovenox injection to take indefinitely. Please schedule an appointment to see Dr. Jamison in 2 wks. Prescriptions: New enoxaparin [Lovenox] 80 mg/0.8 mL syringe 80 mg SQ DAILY 30 Days Qty: 24 RF: 0 Continued carvedilol [Coreg] 25 mg tablet 25 mg PO BID RF: 0 diltiazem HCl [Taztia XT] 180 mg capsule,extended release 24 hr 180 mg PO DAILY RF: 0 acetaminophen [Tylenol Extra Strength] 500 mg Tablet 1,000 mg PO Q6H PRN (Reason: Pain) RF: 0 pravastatin [Pravachol] 20 mg tablet 20 mg PO DAILY RF: 0 furosemide [Lasix] 20 mg Tablet 20 mg PO DAILY PRN (Reason: Edema) RF: 0 losartan [Cozaar] 100 mg tablet 100 mg PO DAILY RF: 0 ipratropium bromide 0.02 % Solution 1 unit INHALATION Q6H RF: 0 levalbuterol HCl [Xopenex] 1.25 mg/3 mL Solution For Nebulization 1.25 mg INHALATION TID RF: 0 albuterol sulfate [Ventolin HFA] 90 mcg/actuation HFA aerosol inhaler 1 - 2 puff Inhalation Q6H PRN (Reason: Shortness Of Breath) RF: 0 Discontinued Eliquis 5 mg tablet 5 mg PO BID RF: 0 Stand-Alone Forms: [facility] Discharge Orders: Discharge Order (Routine); Ordered 05/08/18 Ordered By: Khadijah Lai Admission Data Admit Date/Time: 05/07/18 20:50 Attending Provider: Khadijah Lai Admit Provider: Arminda Irizarry Primary Care Provider: Lilliana Yeung Other Providers: Todd Aparicio ; Joseph Jamison V Service: Telemetry Other DC Date/Time DO NOT enter until pt leaves facility: 05/08/18 15:50
--- NOTE | 2018-05-08 18:38 | Medical Student Progress Note ---
Date of Service May 08, 2018 Assessment & Plan (1) Pulmonary embolism: Assessment: Patient is a 77-year-old female, with a PMH of lung cancer (adenocarcinoma), atrial fibrillation, emphysema, CHF, CAD, HTN, dyslipidemia, and thyroid carcinoma, who presented to the [facility] ED for SOB/dyspnea and, upon physical exam and further work-up, was found to have a RUL PE and nase mass deformity. Plan: 1. PE * Likely secondary to progressive lung cancer * On Eliquis for A. Fib, no concerns for non-compliance * Started on IV heparin drip, switched to Lovenox 1.5 mg/kg daily and discharged home on it for long-term use * F/U with Oncology - Outpatient 2. Nasal Mass * F/U with ENT - Outpatient 3. Weakness/Fatigue * At baseline on discharge. F/U in outpatient setting. 4. Lung Cancer * F/U with Oncology - Outpatient 5. COPD/Chronic Respiratory Failure * Home medications PRN (Xopenex, Ventolin) * Continue 4L O2 at home 6. Hypertension * Continue home medications (carvedilol, diltiazem, losartan) 7. Diastolic CHF * Stayed euvolemic 8. Atrial Fibrillation * Anticoagulation with Lovenox. Eliquis D/Marin. Continue carvedilol, diltiazem. 9. Non-occlusive coronary artery disease: * Continue home medications (statin, carvedilol, losartan) Acute cor pulmonale presence: without acute cor pulmonale Chronicity: acute Pulmonary embolism type: unspecified Qualified Code(s): I26.99 - Other pulmonary embolism without acute cor pulmonale Subjective Patient is a 77-year-old female, with a PMH of lung cancer (adenocarcinoma), atrial fibrillation, emphysema, CHF, CAD, HTN, dyslipidemia, and thyroid carcinoma, who presented to the [facility] ED for SOB/dyspnea. Per her daughter, a few days prior, the patient vocalized that she was having nose pain, difficulty breathing, increased weakness, and fatigue. The daughter notes that the patient has been struggling with similar symptoms for over a year and was recently adm itted in February for similar concerns. A work-up, including head, chest, and face CT, demonstrated that the patient had a "small, second-order" PE in the RUL. Given that the patient was already on apixaban, it was decided that she would be admitted to inpatient for further work-up and treatment. Today, the patient notes that she is feeling much better. The weakness/fatigue that she had on presentation has, for the most part, subsided and she was able to eat breakfast without any problems this morning. She did note that her nose is still very painful and possibly producing more "blood/crust." She was unable to sleep the night prior, due to being in the hospital. Finally, she mentioned some abdominal/back pain that she noticed earlier this morning, but attributes that to "lying around in this bed." Review of Systems All systems reviewed & are unremarkable except as noted in HPI & below Physical Exam Vital Signs (Past 24 Hours): Last Vital Signs Temp 36.5 C 05/08/18 15:02 Pulse 77 05/08/18 15:02 Resp 22 05/08/18 15:02 BP 139/77 05/08/18 15:02 Pulse Ox 96 05/08/18 15:02 Constitutional: + thin, + frail appearing and comfortable; no acute distress Eyes: PERRL, conjunctivae normal, anicteric sclerae ENMT: Nose: + nasal discharge (excessive rhinorrhea), + sinus tenderness (examination limited) and + nare abnormality (soft tissue mass in L nare) oxymask in place, excessive blood/crust noted on anterior septum and in L nare Neck: trachea midline, no thyromegaly Respiratory: normal respiratory effort; no labored breathing Auscultation: + diminished lung sounds Cardiovascular: RRR, no murmur, no edema Vessels: normal peripheral pulses Extremities: no calf tenderness Gastrointestinal (Abdomen): normal bowel sounds, soft, nontender, no hepatosplenomegaly Skin: no rashes, warm and dry Neurologic: normal touch/pain/proprioception, CN's II-XI intact bilaterally, moves all extremities and awake Psychiatric: A+Ox3, euthymic affect Orientation: cooperative Results & Data Laboratory Results 05/07/18 05/07/18 05/07/18 Range/Units 19:40 18:02 17:38 WBC (4.8-10.8) K/uL RBC (4.2-5.4) M/uL Hgb (12.0-16.0) g/dL POC Hgb 13.6 (12.0-16.0) g/dl Hct (37-47) % POC Hct 40 (37-47) % MCV (80-100) fL MCH (25-34) pg MCHC (32-36) g/dL RDW Std Deviation (36.4-46.3) fL RDW Coeff of [place] (11.5-14.5) % Plt Count (130-400) K/uL MPV (7.4-10.4) fL Immature Gran % (Auto) % Neut % (Auto) % Lymph % (Auto) % [place] % (Auto) % Eos % (Auto) % Baso % (Auto) % Immature Gran # (Auto) (0.00-0.02) K/uL Neut # (Auto) (1.4-6.5) K/uL Lymph # (Auto) (1.2-3.4) K/uL [place] # (Auto) (0.11-0.59) K/uL Eos # (Auto) (0-0.5) K/uL Baso # (Auto) (0-0.2) K/uL PT 11.0 (9.0-12.0) Seconds INR 1.1 (0.9-1.1) APTT 31.6 H (21.0-31.0) Seconds PTT Ratio 1.2 POC Sodium 132 L (135-144) mEq/L Sodium (136-145) mmol/L POC Potassium 4.2 (3.3-5.0) mEq/L Potassium (3.5-5.1) mmol/L POC Chloride 80 L (101-112) mEq/L Chloride (98-107) mmol/L Carbon Dioxide (21-32) mmol/L POC Total CO2 > 40 H* (24-31) mEq/l Anion Gap (3-11) POC Anion Gap 13.0 L (16-25) mmol/L POC BUN 9 (7-18) mg/dl BUN (7-18) mg/dl Creatinine (0.6-1.2) mg/dl POC Creatinine 0.5 L (0.6-1.3) mg/dl Est Cr Clr Drug Dosing ml/min Est GFR ( Amer) Est GFR (Non-Af Amer) BUN/Creatinine Ratio (10-20) Glucose (70-99) mg/dl POC Glucose (other) 109 H (70-99) mg/dl Calcium (8.5-10.1) mg/dl POC Ioniz Calcium Perla 1.12 (1.12-1.32) mmol/l Total Bilirubin (0.2-1) mg/dl AST (15-37) U/L ALT (12-78) U/L Alkaline Phosphatase (45-117) U/L Total Creatine Kinase (26-192) U/L CK-MB (CK-2) (0.5-3.6) ng/ml CK/CKMB % Calc (0-3.0) Troponin I (0-0.045) ng/ml Total Protein (6.4-8.2) gm/dl Albumin (3.4-5.0) gm/dl Globulin (2.5-4.0) gm/dl Albumin/Globulin Ratio (0.9-2) Lipase (73-393) U/L Urine Color Yellow Urine Appearance Cloudy H (Clear) Urine pH 8.5 H (4.5-7.5) Ur Specific [place] 1.033 H (1.000-1.030) Urine Protein Negative (Negative) Urine Glucose (UA) Negative (Negative) Urine Ketones Negative (Negative) Urine Blood Trace H (Negative) Urine Nitrite Positive H (Negative) Urine Bilirubin Negative (Negative) Urine Urobilinogen Negative (Negative) Ur Leukocyte Esterase 2+ H (Negative) Urine WBC (Auto) 5-10 H (0-5) /hpf Urine RBC (Auto) 0-4 (0-4) /hpf U Hyaline Cast (Auto) 0 (0-5) /lpf U Epithel Cells (Auto) 5-10 H (0-5) /lpf Urine Bacteria (Auto) 3+ H (Negative) 05/07/18 05/07/18 Range/Units 17:38 17:38 WBC 4.58 L (4.8-10.8) K/uL RBC 4.30 (4.2-5.4) M/uL Hgb 13.0 (12.0-16.0) g/dL POC Hgb (12.0-16.0) g/dl Hct 38.4 (37-47) % POC Hct (37-47) % MCV 89.3 (80-100) fL MCH 30.2 (25-34) pg MCHC 33.9 (32-36) g/dL RDW Std Deviation 39.1 (36.4-46.3) fL RDW Coeff of [place] 12.2 (11.5-14.5) % Plt Count 166 (130-400) K/uL MPV 10.0 (7.4-10.4) fL Immature Gran % (Auto) 0.2 % Neut % (Auto) 58.2 % Lymph % (Auto) 22.9 % [place] % (Auto) 16.8 % Eos % (Auto) 1.7 % Baso % (Auto) 0.2 % Immature Gran # (Auto) 0.01 (0.00-0.02) K/uL Neut # (Auto) 2.66 (1.4-6.5) K/uL Lymph # (Auto) 1.05 L (1.2-3.4) K/uL [place] # (Auto) 0.77 H (0.11-0.59) K/uL Eos # (Auto) 0.08 (0-0.5) K/uL Baso # (Auto) 0.01 (0-0.2) K/uL PT (9.0-12.0) Seconds INR (0.9-1.1) APTT (21.0-31.0) Seconds PTT Ratio POC Sodium (135-144) mEq/L Sodium 132 L (136-145) mmol/L POC Potassium (3.3-5.0) mEq/L Potassium 4.3 (3.5-5.1) mmol/L POC Chloride (101-112) mEq/L Chloride 86 L (98-107) mmol/L Carbon Dioxide 43 H* (21-32) mmol/L POC Total CO2 (24-31) mEq/l Anion Gap 3.0 (3-11) POC Anion Gap (16-25) mmol/L POC BUN (7-18) mg/dl BUN 9 (7-18) mg/dl Creatinine 0.38 L (0.6-1.2) mg/dl POC Creatinine (0.6-1.3) mg/dl Est Cr Clr Drug Dosing 95.1 ml/min Est GFR ( Amer) 120.1 Est GFR (Non-Af Amer) 103.6 BUN/Creatinine Ratio 24.7 H (10-20) Glucose 106 H (70-99) mg/dl POC Glucose (other) (70-99) mg/dl Calcium 9.0 (8.5-10.1) mg/dl POC Ioniz Calcium Perla (1.12-1.32) mmol/l Total Bilirubin 0.5 (0.2-1) mg/dl AST 19 (15-37) U/L ALT 27 (12-78) U/L Alkaline Phosphatase 53 (45-117) U/L Total Creatine Kinase 43 (26-192) U/L CK-MB (CK-2) 1.4 (0.5-3.6) ng/ml CK/CKMB % Calc 3.3 H (0-3.0) Troponin I < 0.015 (0-0.045) ng/ml Total Protein 7.1 (6.4-8.2) gm/dl Albumin 3.8 (3.4-5.0) gm/dl Globulin 3.3 (2.5-4.0) gm/dl Albumin/Globulin Ratio 1.2 (0.9-2) Lipase 87 (73-393) U/L Urine Color Urine Appearance (Clear) Urine pH (4.5-7.5) Ur Specific [place] (1.000-1.030) Urine Protein (Negative) Urine Glucose (UA) (Negative) Urine Ketones (Negative) Urine Blood (Negative) Urine Nitrite (Negative) Urine Bilirubin (Negative) Urine Urobilinogen (Negative) Ur Leukocyte Esterase (Negative) Urine WBC (Auto) (0-5) /hpf Urine RBC (Auto) (0-4) /hpf U Hyaline Cast (Auto) (0-5) /lpf U Epithel Cells (Auto) (0-5) /lpf Urine Bacteria (Auto) (Negative) Diagnostic Findings Chest CTA 05/07/2018 shows progressive bilateral nodularity suggesting progressive metastatic change. Stable emphysema. Small second-order pulmonary embolus involving the right upper lobe. No significant emboli in major central vessels. Face CT 05/07/2018 shows major sinuses are clear. Mild hyperplastic changes in the nasal turbinates as well as anterior nasal septum, configuration recommended if a potential mass is present. Major bony structures intact, no destructive process. Orbital margins intact. Head CT 05/07/2018 shows no masses or lesions or acute changes. Age-related change.
--- NOTE | 2018-05-08 23:43 | Consultation Report ---
DATE OF CONSULTATION: 05/08/2018 MEDICAL ONCOLOGY CONSULTATION REASON FOR CONSULTATION: Options regarding anticoagulation in a 77-year-old female patient with a history of nonsmall cell lung cancer with newly diagnosed pulmonary embolism. HISTORY OF PRESENT ILLNESS: This patient is a pleasant 77-year-old female patient who was admitted to [facility] yesterday when she had presented to the Emergency Room with shortness of breath and dyspnea. The patient had initially reported feeling weak with chest tightness and increased dyspnea on exertion. The patient's daughter apparently went to visit her and noted her oxygen level was in 90s despite utilizing oxygen 4-1/2 liters. She also had presented with epistaxis and nasal blockage. According to the patient's daughter, ENT has been consulted. Nonetheless, she was worked up radiographically and CTA of the chest confirmed pulmonary embolism despite being on Eliquis for several years. The patient admits to compliance on Eliquis, rarely missing doses. Obviously, this is troubling in light of a newly presenting pulmonary embolus. This lady has not been seen in our office in almost 3 years. Apparently, she was diagnosed with nonsmall cell lung cancer she believes back in 2014. At that time, she had established relationship with both Radiation and Medical Oncology seeing Dr. Ross specifically. His last note was dated in 2016. Therefore, very difficult to determine what the current state of her underlying cancer is at present. Again, primary service is requesting recommendations particularly for anticoagulation moving forward. PAST MEDICAL HISTORY: Again, significant for nonsmall cell lung cancer, nonischemic cardiomyopathy, nonobstructive coronary artery disease, atrial dysrhythmias, hypertension, dyslipidemia, thyroid cancer (papillary) and oxygen dependent chronic obstructive pulmonary disease. PAST SURGICAL HISTORY: Stenting of right kidney for renal artery stenosis and cardiac catheterization. HOME MEDICATIONS: Include Eliquis 5 mg p.o. b.i.d., carvedilol 25 mg p.o. b.i.d., diltiazem 180 mg p.o. daily, Lasix 20 mg p.o. daily, ipratropium bromide 1 unit inhaled q. 6 hours, losartan 100 mg p.o. daily, pravastatin 20 mg p.o. daily, albuterol inhaler 1-2 puffs inhaled q. 6 hours p.r.n. and Xopenex 1.25 mg inhaled t.i.d. ALLERGIES: BEE VENOM AND LISINOPRIL. SOCIAL HISTORY: She lives independently. She is retired. She has a 30-40 pack-year history and quit last week. FAMILY HISTORY: Positive for cancer, heart disease and hypertension. REVIEW OF SYSTEMS: As per HPI, most notably for generalized weakness, anorexia and shortness of breath as well as dyspnea on exertion. GENERAL: Negative for fevers, chills or sweats. SKIN: No rashes or lesions. No history of dermatoses. HEENT: She denies headaches, lightheadedness or dizziness. No acute visual or hearing deficits. No sinus symptoms, sore throat or dysphagia. LYMPH: No history of lymphoproliferative disease. CARDIAC: She has both history of atrial arrhythmias and coronary artery disease. No current angina or palpitations however. PULMONARY: The patient had presented with shortness of breath and dyspnea on exertion. She reports no cough or hemoptysis at present. She is also oxygen dependent, suffers from chronic obstructive pulmonary disease. GASTROINTESTINAL: Negative for abdominal pain, nausea, vomiting, diarrhea or constipation, hematochezia or melena of stools. GENITOURINARY: No hematuria, dysuria or urinary incontinence. MUSCULOSKELETAL: No arthralgias or myalgias. No muscle weakness. ENDOCRINE: Negative for diabetes or thyroid disease. Positive for history of thyroid cancer however. NEUROLOGIC: Negative for seizure, stroke or migraine headache. HEMATOLOGIC: Negative for anemia, thrombophilia or bleeding diathesis by history. PHYSICAL EXAMINATION: GENERAL: A very pleasant, cachectic appearing 77-year-old female patient with nonrebreather in place, in no acute distress. VITAL SIGNS: Temperature 36.5, pulse 77, respiratory rate 22 and blood pressure 139/77. SKIN: Warm, dry and noncyanotic with petechia, rash or ecchymosis. Turgor is poor. HEAD: Atraumatic and normocephalic. EYES: PERRLA, EOMI. Sclerae nonicteric. No conjunctival injection. Nares are patent without rhinorrhea or discharge. However, she does have dried bloody exudate. Throat clear. Tongue midline. Mucous membranes are moist. No buccal lesions or ulcerations. NECK: Supple. Trachea is midline. LYMPH: No cervical, supraclavicular, axillary or palpable nodes. HEART: Regular rate and rhythm. No clicks, rubs, murmurs or gallops. LUNGS: Clear to auscultation bilaterally. Breath sounds are distant; however. ABDOMEN: Soft, nontender and nondistended without palpable hepatosplenomegaly. EXTREMITIES: No clubbing, cyanosis or edema. NEUROLOGICAL: She is awake, alert and oriented x3. Cranial nerves are intact. LABORATORY DATA: WBC count 40-50, hemoglobin 11.4 and platelet count . Sodium 132, potassium 3.7, chloride 87, carbon dioxide 44, creatinine 0.33 and BUN 7. Urinalysis positive for nitrite, positive for trace blood, positive 2+ for leukocyte esterase and 5-10 wbc's. RADIOGRAPHIC DATA: CTA of the chest reveals progressive nodularity bilaterally suggesting progressive metastatic change also reveals small second order pulmonary embolus involving the right upper lobe. IMPRESSION: 1. Right upper lobe pulmonary embolus (Eliquis failure). 2. Probable disease progression (nonsmall cell lung cancer). 3. Oxygen dependent chronic obstructive pulmonary disease. 4. Nasal mass. PLAN: I had the pleasure of visiting with the patient at bedside this morning. Consultation was requested particularly to decide anticoagulation for a newly diagnosed pulmonary embolism despite being on several years of direct oral thrombin inhibitor. The patient also has a history of nonsmall cell lung cancer and has not been followed by Medical Oncology in about 3 years. Apparently, when she was diagnosed, received radiation alone and we will have to obtain Dr. Nicole's notes moving forward. In regard to the pertinent issue of anticoagulation, we will recommend Lovenox 1.5 mg/kg daily. I may consider converting her to Coumadin, but we would like her to remain on low molecular weight heparin until she is seen in followup. Secondly, with her history of nonsmall cell lung cancer, we would like to proceed with PET scan as outpatient to further characterize the extent of disease to decide if she needs to be considered for salvage chemotherapy. Obviously, CTA of the chest suggests pleural progression and should be followed up. Lastly, she has a nasal mass and apparently is going to be seen by ENT as outpatient. I was contacted by the hospitalist regarding the patient's disposition. She will most likely be discharged later on today. I have asked the managing medical team to please order a PET scan and arrange for oncologic followup. She will remain on Lovenox again until I see her in the office. I have nothing further to add at this time. Thank you very much for allowing me to participate in her care.
--- NOTE | 2018-05-16 05:37 | Coding Query ---
MICROBIOLOGY To promote full compliance with coding requirements relating to patient care, physician participation is requested in all cases of delphi programmer uncertainty. Please assist us with the question(s) below: Dr. Lai, The H&P states, "UA also shows nitrites and blood, will await culture, empirically start Nitrofurantoin 100mg BID x 5 days. May or may not explain her weakness. Culture pending." Please review the Microbiology report and please document any relevant diagnosis(es) below: Culture positive - suspect asymptomatic bacteriuria as the etiology. No concern of UTI Diagnosis(es): Thank you for your time, CLAIRE Hodges, [facility]
== END 2018-05-08 15:50 | disposition home health service (06) | DRG 814 ==
LOC: ED 17:18 → 2N 20:50 → SUATTDRO 20:50 → 2N 21:25

== ENCOUNTER 2018-11-13 13:09 | Inpatient (IN) ==
[2018-11-13 13:46] LABS: Basophils # (auto) 0.01 K/uL (0-0.2); Basophils % (auto) 0.2 %; Eosinophils # (auto) 0.05 K/uL (0-0.5); Eosinophils % (auto) 1.2 %; Hematocrit (blood only) 40.5 % (37-47); Hemoglobin 12.2 g/dL (12.0-16.0); Immature Granulocytes # (auto) 0.03 K/uL (0.00-0.02); Immature Granulocytes % (auto) 0.7 %; Lymphocytes # (auto) 0.83 K/uL (1.2-3.4); Lymphocytes % (auto) 19.3 %; Mean Corpuscular Hemoglobin 30.1 pg (25-34); Mean Corpuscular Hgb Conc 30.1 g/dL (32-36); Mean Platelet Volume 10.2 fL (7.4-10.4); Monocytes # (auto) 0.62 K/uL (0.11-0.59); Monocytes % (auto) 14.5 %; Neutrophils # (auto) 2.75 K/uL (1.4-6.5); Neutrophils % (auto) 64.1 %; Platelet Count 130 K/uL (130-400); RDW Coefficient of Variation 13.2 % (11.5-14.5); RDW Standard Deviation 47.5 fL (36.4-46.3); Red Blood Count 4.05 M/uL (4.2-5.4); White Blood Count 4.29 K/uL (4.8-10.8)
[2018-11-13 13:54] LABS: Partial Thromboplastin Time 26.1 Seconds (21.0-31.0); Prothrombin Time 10.2 Seconds (9.0-12.0)
[2018-11-13 14:15] LABS: Alanine Aminotransferase 32 U/L (12-78); Albumin Level 3.4 gm/dl (3.4-5.0); Alkaline Phosphatase 47 U/L (45-117); Aspartate Aminotransferase 16 U/L (15-37); BUN Creatinine Ratio 55.2 (10-20); Bilirubin,Total 0.4 mg/dl (0.2-1); Blood Urea Nitrogen 18 mg/dl (7-18); Calcium 9.3 mg/dl (8.5-10.1); Chloride 96 mmol/L (98-107); Est GFR (African American) 126.2; Est GFR (Non-African American) 108.9; Globulin 3.3 gm/dl (2.5-4.0); Glucose 120 mg/dl (70-99); Potassium 4.3 mmol/L (3.5-5.1); Sodium 146 mmol/L (136-145); Total Protein 6.7 gm/dl (6.4-8.2); Troponin I < 0.015 ng/ml (0-0.045)
--- NOTE | 2018-11-13 14:33 | XRay Report ---
XR chest 1V portable CLINICAL HISTORY: SOB dyspnea COMPARISON STUDY: 03/22/2018. FINDINGS: findings of mildly progressive interstitial change throughout both hemithoraces. Nodular de nsity left upper lung perhaps slightly increased. Moderate emphysematous change with flattening of the diaphragms bilaterally. IMPRESSION: 1. Emphysematous change with mild progressive parenchymal fibrotic change versus early interstitial e cecilio. 2. Slightly increased left upper lung nodular density. The above report was generated using voice recognition software. It may contain grammatical, syntax or spelling errors. Electronically signed by: Bentley Quinn M.D. 11/13/2018 2:31 PM
[2018-11-13 14:36] LABS: Anion Gap 0 (3-11); Carbon Dioxide 50 mmol/L (21-32)
[2018-11-13] MEDS: SODIUM CHLORIDE 0.9% 1000ML 1,000 ML IV SCH (14:48)
[2018-11-13 15:12] LABS: Appearance Urine Cloudy (Clear); Bacteria Urine Automated Negative (Negative); Bilirubin Urine Negative (Negative); Blood Urine Negative (Negative); Color Urine Yellow; Epithelial Cell Urine Auto 20-30 /lpf (0-5); Glucose Urine UA Negative (Negative); Ketones Urine Negative (Negative); Leukocyte Esterase Urine Negative (Negative); Nitrite Urine Negative (Negative); Protein Urine Trace (Negative); RBC Urine Automated 0-4 /hpf (0-4); Urobilinogen Urine Negative (Negative)
[2018-11-13] MEDS ORDERED: IOVERSOL 100ml IV PRN (15:32)
--- NOTE | 2018-11-13 15:44 | CT Scan Report ---
CT head/brain wo con CT DOSE: 834.32 mGy.cm HISTORY: Mental status change AMS TECHNIQUE: Multiaxial CT images of the head were performed without the use of intravenous contrast. A dose lowering technique was utilized adhering to the principles of ALARA. Comparison: 05/07/2018 Findings: The paranasal sinuses and mastoid air cells are clear. The calvarium and skull base are int act. The ventricles and sulci are within normal limits. There is no mass, hematoma, midline shift, or acute infarct. Impression: No acute intracranial abnormality. Mild age-related change. The above report was generated using voice recognition software. It may contain grammatical, syntax or spelling errors. Electronically signed by: Bentley Quinn M.D. 11/13/2018 3:43 PM
--- NOTE | 2018-11-13 15:50 | CT Scan Report ---
Study: CT facial bones HISTORY:, Septal tumor nasal tumor. COMPARISON: 05/07/2018. FINDINGS: Some progressive thickening of the anterior and central aspect of the tip of the nasal soft tissues. No definite evidence for bony invasion. No compromise of the airway. The major sinuses are grossly clear. There is minimal mucosal thickening posterior aspect of the sphe noid sinuses. IMPRESSION: 1. Localized increased prominence of the soft tissues in the region of the tip of the nasal soft tiss ues as well as anterior and mid nasal nares 2. This is suggestive of progressive localized neoplastic or inflammatory change. 3. No evidence for bony destructive process. 4. The bulk of the sinuses are otherwise clear. Electronically signed by: Bentley Quinn M.D. 11/13/2018 3:49 PM
[2018-11-13] MEDS ORDERED: ONDANSETRON INJ 2 MG/ML 2 ML VIAL IV STA (16:22)
[2018-11-13] MEDS ORDERED: fentaNYL citrate 100 MCG/2 ML VIAL IV STA (16:22)
[2018-11-13] MEDS: METOPROLOL TARTRATE 1 MG/ML VIAL IV PRN ×3 (16:36→17:30)
[2018-11-13] MEDS ORDERED: dilTIAZem HCl 5 MG/ML 5 ML VIAL IV STA (17:33)
--- NOTE | 2018-11-13 19:10 | Emergency Department Note ---
Entered by Dia Brown acting as a scribe for History of Present Illness General Chief complaint: Shortness of Breath/Dyspnea Source: patient and family (daughter) Mode of arrival: EMS Limitations: no limitations History of Present Illness Provider complaint: Facial pain Onset (ago): day(s) (a few days ago) Location: face and mouth Pain Consistency: + other (worsening) Quality: + other (upper and lower jaw pain, teeth pain, mouth pain) Relieved By: + none Associated symptoms: + shortness of breath, + weakness and + other (Additional symptoms: fatigue, disorientation, slurred speech, pain with eating, chronic back pain); no fever/chills and no nausea/vomiting Treatments prior to arrival: none The patient is a 78 year old female with a history of COPD, hypertension, lung cancer, CHF, atrial fibrillation, PE, anxiety, depression, thyroid carcinoma, and a cardiac catheterization who presents to the Emergency Room with com plaints of worsening facial pain starting a few days ago. Per daughter, the patient has been complaining of pain in her upper and lower jaw, teeth, and mouth. She states that the patient's pain has been accompanied by fatigue, disorientation, slurred speech, and weakness, which are unusual symptoms for the patient. The daughter notes that the patient wears dentures and that her teeth do not fit well. She adds that the patient also complains of pain with eating, chronic back pain, and shortness of breath. She explains that the patient wears 4.5L O2 all the time. She denies any fevers and vomiting. Per daughter, the patient's health has been declining since she had radiation therapy for lung c ancer a couple of years ago. 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 She states that Dr. Hossein JORDAN performed the biopsy and that the tumor was not resected. She notes that the dressing under the patient's nose is changed once daily. Per daughter, the patient's oncologist is Dr. Martin, and the patient has not yet had a palliative care appointment. She reports that the patient lives alone and is on a blood thinner. The patient indicates that she does not smoke. Home Medications Home Medications Medication Instructions Recorded Confirmed Type acetaminophen [Tylenol Extra 1,000 mg PO Q6H PRN 03/22/18 11/13/18 History Strength] carvedilol [Coreg] 25 mg PO BIDM 03/22/18 11/13/18 History furosemide [Lasix] 20 mg PO DAILY PRN 03/22/18 11/13/18 History ipratropium bromide 1 unit INHALATION Q4H PRN 03/22/18 11/13/18 History losartan [Cozaar] 100 mg PO QAM 03/22/18 11/13/18 History pravastatin [Pravachol] 20 mg PO QAM 03/22/18 11/13/18 History albuterol sulfate [Ventolin HFA] 1 - 2 puff INHALATION Q6H PRN 05/07/18 11/13/18 History levalbuterol HCl [Xopenex] 1.25 mg INHALATION TID PRN 05/07/18 11/13/18 History enoxaparin 80 mg/0.8 mL 80 mg SQ DAILY #24 ml 11/01/18 11/13/18 Rx subcutaneous syringe diltiazem HCl 180 mg PO DAILY 11/13/18 11/13/18 History Allergies Allergy/AdvReac Type Severity Reaction Status Date / Time bee venom protein (honey bee) Allergy Intermediate Hives and Verified 11/13/18 14:15 swelling lisinopril AdvReac Intermediate cough Verified 11/13/18 14:15 Past Med/Surg History Medical History Lung cancer Hypertension CHF (congestive heart failure) Atrial fibrillation PAROXYSMAL Anxiety CAD (coronary artery disease) NON-OBSTRUCTIVE Chronic obstructive pulmonary disease 4.5 LPM VIA N/C CONTINUOUS Depression Hearing deficit History of cardiomyopathy "RESOLVED" ON MOST RECENT ECHO Pulmonary embolism 05/07/18 Thyroid carcinoma PAPILLARY; ENT MONITORING Surgical History History of bronchoscopy WITH BIOPSY History of cardiac cath 2013= NO STENTS History of herniorrhaphy History of stent insertion of renal artery Family History Other FHx: cancer FHx: heart disease FHx: hypertension Social History Preferred Language: Greenlandic Communication Ability: Unable Visual Impairment: No Limitations Cytogenetics Technologist Required: No Beliefs That Will Affect Care: None marital status: / Current Living Situation: Alone Current Living Situation Comment: Family comes in to assist with care. Feels Safe at Home: Yes Smoking Status: Current every day smoker Tobacco Type: cigarettes ; Cigarettes Per Day: 2 ; Second Hand Exposure: No ; Hx Alcohol Use: No Hx Substance Use: No Review of Systems See HPI for pertinent positives & negatives. and A total of 10 systems reviewed and were otherwise negative Physical Exam Vital Signs Vital Signs - 24 hr 11/13/18 18:38 11/13/18 19:00 11/13/18 20:00 Oxygen Flow Rate - Titration Pulse Oximetry Post Tiitration Pulse Rate 111 H Pulse Rate [Apical] 118 H 119 H Pulse Rate from SpO2 Sensor 92 H Respiratory Rate 21 28 H Respiratory Effort / Characteristics Respiratory Depth Respiratory Pattern Blood Pressure 92/52 L Blood Pressure [Right Arm] 77/49 L 97/62 L Blood Pressure Mean 65 Blood Pressure Mean [Right Arm] 58 73 Pulse Oximetry 96 98 Oxygen Delivery Method Room Air Oxymask Oxygen Flow Rate 4 Fraction of Inspired Oxygen 11/13/18 20:10 11/13/18 20:15 11/13/18 20:30 Oxygen Flow Rate - Titration Pulse Oximetry Post Tiitration Pulse Rate 115 H 123 H Pulse Rate [Apical] 121 H Pulse Rate from SpO2 Sensor 93 H 94 H Respiratory Rate 97 H 23 19 Respiratory Effort / Characteristics Respiratory Depth Respiratory Pattern Blood Pressure 93/55 L 85/58 L Blood Pressure [Right Arm] 93/55 L Blood Pressure Mean 67 67 Blood Pressure Mean [Right Arm] 67 Pulse Oximetry 97 98 97 Oxygen Delivery Method Room Air Oxymask Oxymask Oxygen Flow Rate 4 4 Fraction of Inspired Oxygen 11/13/18 20:45 11/13/18 21:00 11/13/18 21:07 Oxygen Flow Rate - Titration Pulse Oximetry Post Tiitration Pulse Rate 114 H 134 H 123 H Pulse Rate [Apical] Pulse Rate from SpO2 Sensor 100 H 91 H 84 Respiratory Rate 17 23 26 H Respiratory Effort / Characteristics Respiratory Depth Respiratory Pattern Blood Pressure 79/51 L 93/59 L 87/43 L Blood Pressure [Right Arm] Blood Pressure Mean 60 70 57 Blood Pressure Mean [Right Arm] Pulse Oximetry 97 97 97 Oxygen Delivery Method Oxymask Oxymask Oxymask Oxygen Flow Rate 4 4 4 Fraction of Inspired Oxygen 11/13/18 21:10 11/13/18 21:15 11/13/18 21:30 Oxygen Flow Rate - Titration 2 Pulse Oximetry Post Tiitration 96 Pulse Rate 124 H 122 H Pulse Rate [Apical] Pulse Rate from SpO2 Sensor 94 H 95 H Respiratory Rate 18 18 Respiratory Effort / Characteristics Respiratory Depth Respiratory Pattern Blood Pressure 96/58 L 86/44 L Blood Pressure [Right Arm] Blood Pressure Mean 70 58 Blood Pressure Mean [Right Arm] Pulse Oximetry 98 93 90 Oxygen Delivery Method Oxymask Oxymask Oxymask Oxygen Flow Rate 4 2 2 Fraction of Inspired Oxygen 11/13/18 21:37 11/13/18 21:45 11/13/18 21:46 Oxygen Flow Rate - Titration Pulse Oximetry Post Tiitration Pulse Rate 129 H 115 H 116 H Pulse Rate [Apical] Pulse Rate from SpO2 Sensor 102 H 88 Respiratory Rate 28 H 31 H 19 Respiratory Effort / Characteristics Non-Labored Spontaneous Respiratory Depth Normal Respiratory Pattern Regular Blood Pressure 80/51 L 85/46 L Blood Pressure [Right Arm] Blood Pressure Mean 60 59 Blood Pressure Mean [Right Arm] Pulse Oximetry 89 L 93 Oxygen Delivery Method Oxymask BiPAP Oxygen Flow Rate 2 Fraction of Inspired Oxygen 40 40 11/13/18 22:01 11/13/18 22:16 Oxygen Flow Rate - Titration Pulse Oximetry Post Tiitration Pulse Rate 119 H 107 H Pulse Rate [Apical] Pulse Rate from SpO2 Sensor 81 Respiratory Rate 28 H 18 Respiratory Effort / Characteristics Respiratory Depth Respiratory Pattern Blood Pressure 83/54 L 78/50 L Blood Pressure [Right Arm] Blood Pressure Mean 63 59 Blood Pressure Mean [Right Arm] Pulse Oximetry 89 L Oxygen Delivery Method BiPAP Oxygen Flow Rate Fraction of Inspired Oxygen 40 Vital signs reviewed. General: Chronically ill-appearing female with oxygen mask in place. Large dressing inferior to the nose, malodorous. Cachectic. HEENT: No scleral icterus, PERRLA, neck supple. Atraumatic. Cardiovascular: Slightly tachycardic rate and regular rhythm, no extra sounds. Pulmonary: Coarse breath sounds bilaterally, normal work of breathing. Abdomen: Soft, nontender, nondistended, positive bowel sounds. Musculoskeletal: Atraumatic, no peripheral edema. Neurologic: Patient somnolent but arousable. States she has pain in her face and "teeth." Skin: Warm, dry, no rash Course 1412: The patient was evaluated in room C10, and a complete history and physical examination were performed. 1736: I reviewed the patient's case with Dr. Karla Schroeder - Hospitalist. Dr. Karla Schroeder will evaluate the patient for further management. 2147: I spoke to Dr. Zhu Fuel Oil Clerk about the patient. 2149: I reevaluated the patient and reviewed checked on her heart rate at this time. Consultations Consultation #1: I reviewed the patient's case with Dr. Karla Schroeder - Hospitalist. Dr. Karla Schroeder will evaluate the patient for further management. Time: 17:36 Consultation #2: I spoke to Dr. Zhu Fuel Oil Clerk about the patient. Time: 21:48 Administered Medications Discontinued Medications Carvedilol (Coreg) 25 mg PO BIDM JANEE Stop: 12/14/18 07:59 Last Admin: 11/14/18 07:29 Dose: Not Given Documented by: [id number] Dextrose (Dextrose 50%) 50 ml IV NOW STA Stop: 11/13/18 21:23 Last Admin: 11/13/18 21:42 Dose: 50 ml Documented by: [id number] Diltiazem HCl (Cardizem) 20 mg IV NOW STA Stop: 11/13/18 17:34 Last Admin: 11/13/18 18:25 Dose: 10 mg Documented by: [id number] Cosigned by: [id number] Enoxaparin Sodium (Lovenox) 80 mg SQ DAILY [facility] Stop: 12/14/18 08:59 Last Admin: 11/14/18 09:32 Dose: Not Given Documented by: [id number] Enoxaparin Sodium (Lovenox) 60 mg SQ DAILY JANEE Stop: 12/14/18 09:29 Last Admin: 11/14/18 10:30 Dose: Not Given Documented by: [id number] Fentanyl Citrate (Fentanyl Citrate) 50 mcg IV NOW STA Stop: 11/13/18 16:23 Last Admin: 11/13/18 16:36 Dose: 50 mcg Documented by: [id number] Hydrocortisone Sodium Succinate (Solu-Cortef) 100 mg IV NOW STA Stop: 11/13/18 21:22 Last Admin: 11/13/18 21:42 Dose: 100 mg Documented by: [id number] Sodium Chloride (Nss 1000ml) 1,000 mls @ 125 mls/hr IV .Q8H JANEE Stop: 12/13/18 14:29 Last Infusion: 11/14/18 10:30 Dose: 0 mls/hr Documented by: [id number] Admin: 11/14/18 08:02 Dose: 125 mls/hr Documented by: [id number] Infusion: 11/14/18 08:02 Dose: 125 mls/hr Documented by: [id number] Admin: 11/14/18 00:07 Dose: 125 mls/hr Documented by: [id number] Infusion: 11/13/18 21:42 Dose: 0 mls/hr Documented by: [id number] Admin: 11/13/18 14:48 Dose: 125 mls/hr Documented by: [id number] Piperacillin Sod/Tazobactam Sod (Zosyn) 3.375 gm in 115 mls @ 230 mls/hr IV NOW STA Stop: 11/13/18 21:49 Last Infusion: 11/13/18 22:25 Dose: 0 mls/hr Documented by: [id number] Admin: 11/13/18 21:55 Dose: 230 mls/hr Documented by: [id number] Vancomycin HCl 1,000 mg/ (Sodium Chloride) 270 mls @ 125 mls/hr IV ONE STA Stop: 11/13/18 23:37 Last Infusion: 11/14/18 01:11 Dose: 0 mls/hr Documented by: [id number] Admin: 11/13/18 22:19 Dose: 125 mls/hr Documented by: [id number] Digoxin 250 mcg/ Syringe 10 mls @ 2 mls/min IV ONE ONE Stop: 11/13/18 22:49 Last Admin: 11/13/18 23:07 Dose: 2 mls/min Documented by: [id number] Sodium Chloride (Nss) 250 mls @ 999 mls/hr IV .Q16M ONE Stop: 11/13/18 22:51 Last Infusion: 11/13/18 22:58 Dose: 0 mls/hr Documented by: [id number] Admin: 11/13/18 22:42 Dose: 999 mls/hr Documented by: [id number] Digoxin 250 mcg/ Syringe 10 mls @ 2 mls/min IV NOW STA Stop: 11/14/18 03:29 Last Admin: 11/14/18 03:59 Dose: 2 mls/min Documented by: [id number] Piperacillin Sod/Tazobactam (Sod 3.375 gm/ Dextrose) 115 mls @ 28.75 mls/hr IV Q8H JANEE; Protocol Stop: 11/16/18 07:59 Last Infusion: 11/14/18 10:30 Dose: 0 mls/hr Documented by: [id number] Admin: 11/14/18 08:15 Dose: 28.8 mls/hr Documented by: [id number] Ioversol (Optiray 320 100ml) 94 ml IV ONCE PRN PRN Reason: Interaction Checking Stop: 11/17/18 15:31 Last Admin: 11/13/18 15:33 Dose: 94 ml Documented by: [id number] Metoprolol Tartrate (Lopressor) 5 mg IV Q5M PRN PRN Reason: Tachycardia Stop: 12/13/18 16:20 Last Admin: 11/13/18 17:30 Dose: 5 mg Documented by: [id number] Admin: 11/13/18 17:00 Dose: 5 mg Documented by: [id number] Admin: 11/13/18 16:36 Dose: 5 mg Documented by: [id number] Miscellaneous (Patient's Height And/Or Weight Needed) 1 ea N/A Q30M JANEE Stop: 12/14/18 06:29 Last Admin: 11/14/18 08:04 Dose: Not Given Documented by: [id number] Admin: 11/14/18 06:41 Dose: 1 ea Documented by: [id number] Morphine Sulfate (Morphine Sulfate) 2 mg IV Q2H PRN PRN Reason: Pain or SOB Stop: 11/28/18 09:56 Last Admin: 11/14/18 11:18 Dose: 2 mg Documented by: [id number] Ondansetron HCl (Zofran) 4 mg IV NOW STA Stop: 11/13/18 16:23 Last Admin: 11/13/18 16:36 Dose: 4 mg Documented by: [id number] Medical Decision Making Differential Diagnosis Differential diagnosis: Etiologies such as metabolic, infection, hypo/hyperglycemia, electrolyte abnormalities, cardiac sources, intracerebral event, toxicologic, neurologic, as well as others were entertained. Medical Records Attestation: I reviewed the patient's medical records. Home Medications Current Medication List: was personally reviewed by me Laboratory Data Attestation: I reviewed the patient's lab results. Result diagrams: 11/14/18 06:59 11/14/18 06:59 Lab Results 11/13/18 11/13/18 11/13/18 Range/Units 13:22 13:23 13:23 WBC 4.29 L (4.8-10.8) K/uL RBC 4.05 L (4.2-5.4) M/uL Hgb 12.2 (12.0-16.0) g/dL Hct 40.5 (37-47) % MCV 100.0 (80-100) fL MCH 30.1 (25-34) pg MCHC 30.1 L (32-36) g/dL RDW Std Deviation 47.5 H (36.4-46.3) fL RDW Coeff of [place] 13.2 (11.5-14.5) % Plt Count 130 (130-400) K/uL MPV 10.2 (7.4-10.4) fL Immature Gran % (Auto) 0.7 % Neut % (Auto) 64.1 % Lymph % (Auto) 19.3 % [place] % (Auto) 14.5 % Eos % (Auto) 1.2 % Baso % (Auto) 0.2 % Immature Gran # (Auto) 0.03 H (0.00-0.02) K/uL Neut # (Auto) 2.75 (1.4-6.5) K/uL Lymph # (Auto) 0.83 L (1.2-3.4) K/uL [place] # (Auto) 0.62 H (0.11-0.59) K/uL Eos # (Auto) 0.05 (0-0.5) K/uL Baso # (Auto) 0.01 (0-0.2) K/uL PT 10.2 (9.0-12.0) Seconds INR 1.0 (0.9-1.1) APTT 26.1 (21.0-31.0) Seconds PTT Ratio 1.0 Sodium (136-145) mmol/L Potassium (3.5-5.1) mmol/L Chloride (98-107) mmol/L Carbon Dioxide (21-32) mmol/L Anion Gap (3-11) BUN (7-18) mg/dl Creatinine (0.6-1.2) mg/dl Est Cr Clr Drug Dosing ml/min Est GFR ( Amer) Est GFR (Non-Af Amer) BUN/Creatinine Ratio (10-20) Glucose (70-99) mg/dl POC Glucose (70-99) Calcium (8.5-10.1) mg/dl Magnesium (1.8-2.4) mg/dl Total Bilirubin (0.2-1) mg/dl AST (15-37) U/L ALT (12-78) U/L Alkaline Phosphatase (45-117) U/L Troponin I (0-0.045) ng/ml Total Protein (6.4-8.2) gm/dl Albumin (3.4-5.0) gm/dl Globulin (2.5-4.0) gm/dl Albumin/Globulin Ratio (0.9-2) Urine Color Yellow Urine Appearance Cloudy A (Clear) Urine pH 7.0 (4.5-7.5) Ur Specific [place] 1.020 (1.000-1.030) Urine Protein Trace H (Negative) Urine Glucose (UA) Negative (Negative) Urine Ketones Negative (Negative) Urine Blood Negative (Negative) Urine Nitrite Negative (Negative) Urine Bilirubin Negative (Negative) Urine Urobilinogen Negative (Negative) Ur Leukocyte Esterase Negative (Negative) Urine WBC (Auto) 1-5 (0-5) /hpf Urine RBC (Auto) 0-4 (0-4) /hpf U Hyaline Cast (Auto) 1-5 (0-5) /lpf U Epithel Cells (Auto) 20-30 H (0-5) /lpf Urine Bacteria (Auto) Negative (Negative) 11/13/18 11/13/18 11/13/18 Range/Units 13:23 13:23 21:14 WBC (4.8-10.8) K/uL RBC (4.2-5.4) M/uL Hgb (12.0-16.0) g/dL Hct (37-47) % MCV (80-100) fL MCH (25-34) pg MCHC (32-36) g/dL RDW Std Deviation (36.4-46.3) fL RDW Coeff of [place] (11.5-14.5) % Plt Count (130-400) K/uL MPV (7.4-10.4) fL Immature Gran % (Auto) % Neut % (Auto) % Lymph % (Auto) % [place] % (Auto) % Eos % (Auto) % Baso % (Auto) % Immature Gran # (Auto) (0.00-0.02) K/uL Neut # (Auto) (1.4-6.5) K/uL Lymph # (Auto) (1.2-3.4) K/uL [place] # (Auto) (0.11-0.59) K/uL Eos # (Auto) (0-0.5) K/uL Baso # (Auto) (0-0.2) K/uL PT (9.0-12.0) Seconds INR (0.9-1.1) APTT (21.0-31.0) Seconds PTT Ratio Sodium 146 H (136-145) mmol/L Potassium 4.3 (3.5-5.1) mmol/L Chloride 96 L (98-107) mmol/L Carbon Dioxide 50 H* (21-32) mmol/L Anion Gap 0 L (3-11) BUN 18 (7-18) mg/dl Creatinine 0.32 L (0.6-1.2) mg/dl Est Cr Clr Drug Dosing 93.0 ml/min Est GFR ( Amer) 126.2 Est GFR (Non-Af Amer) 108.9 BUN/Creatinine Ratio 55.2 H (10-20) Glucose 120 H (70-99) mg/dl POC Glucose 88 (70-99) Calcium 9.3 (8.5-10.1) mg/dl Magnesium 1.9 (1.8-2.4) mg/dl Total Bilirubin 0.4 (0.2-1) mg/dl AST 16 (15-37) U/L ALT 32 (12-78) U/L Alkaline Phosphatase 47 (45-117) U/L Troponin I < 0.015 (0-0.045) ng/ml Total Protein 6.7 (6.4-8.2) gm/dl Albumin 3.4 (3.4-5.0) gm/dl Globulin 3.3 (2.5-4.0) gm/dl Albumin/Globulin Ratio 1.0 (0.9-2) Urine Color Urine Appearance (Clear) Urine pH (4.5-7.5) Ur Specific [place] (1.000-1.030) Urine Protein (Negative) Urine Glucose (UA) (Negative) Urine Ketones (Negative) Urine Blood (Negative) Urine Nitrite (Negative) Urine Bilirubin (Negative) Urine Urobilinogen (Negative) Ur Leukocyte Esterase (Negative) Urine WBC (Auto) (0-5) /hpf Urine RBC (Auto) (0-4) /hpf U Hyaline Cast (Auto) (0-5) /lpf U Epithel Cells (Auto) (0-5) /lpf Urine Bacteria (Auto) (Negative) Imaging Data Radiologist's Impression: Radiology results as stated below per my review and the radiologist's interpretation: XR chest 1V portable CLINICAL HISTORY: SOB dyspnea COMPARISON STUDY: 03/22/2018. FINDINGS: findings of mildly progressive interstitial change throughout both hemithoraces. Nodular density left upper lung perhaps slightly increased. Moderate emphysematous change with flattening of the diaphragms bilaterally. IMPRESSION: 1. Emphysematous change with mild progressive parenchymal fibrotic change versus early interstitial edema. 2. Slightly increased left upper lung nodular density. The above report was generated using voice recognition software. It may contain grammatical, syntax or spelling errors. Electronically signed by: Bentley Quinn M.D. 11/13/2018 2:31 PM Study: CT facial bones HISTORY:, Septal tumor nasal tumor. COMPARISON: 05/07/2018. FINDINGS: Some progressive thickening of the anterior and central aspect of the tip of the nasal soft tissues. No definite evidence for bony invasion. No compromise of the airway. The major sinuses are grossly clear. There is minimal mucosal thickening posterior aspect of the sphenoid sinuses. IMPRESSION: 1. Localized increased prominence of the soft tissues in the region of the tip of the nasal soft tissues as well as anterior and mid nasal nares 2. This is suggestive of progressive localized neoplastic or inflammatory change. 3. No evidence for bony destructive process. 4. The bulk of the sinuses are otherwise clear. Electronically signed by: Bentley Quinn M.D. 11/13/2018 3:[address] head/brain wo con CT DOSE: 834.32 mGy.cm HISTORY: Mental status change AMS TECHNIQUE: Multiaxial CT images of the head were performed without the use of intravenous contrast. A dose lowering technique was utilized adhering to the principles of ALARA. Comparison: 05/07/2018 Findings: The paranasal sinuses and mastoid air cells are clear. The calvarium and skull base are intact. The ventricles and sulci are within normal limits. There is no mass, hematoma, midline shift, or acute infarct. Impression: No acute intracranial abnormality. Mild age-related change. The above report was generated using voice recognition software. It may contain grammatical, syntax or spelling errors. Electronically signed by: Bentley Quinn M.D. 11/13/2018 3:43 PM ECG Data Attestation: I personally reviewed and interpreted this ECG as follows: Indication: SOB/dyspnea Rate (beats per minute): 90 Rhythm: normal sinus Findings: + other (left atrial enlargement, LVH) and + left axis deviation; no ectopy Additional Comments: REPEAT EKG FINDINGS: Atrial fibrillation with RVR, 157 BPM, aberrant complexes, left axis deviation, nonspecific ST changes, QTC is 485. Blood Pressure Blood Pressure Findings: Low blood pressure Blood Pressure Disposition: further management by hospitalist MDM Narrative This patient was evaluated and appeared to be in no significant distress on my initial evaluation. Patient is cachectic and frail. She is on continuous oxygen at home but unable to wear cannula secondary to the nasal septal mass/dressing. Patient has a foul odor coming from the dressing which appears to be saturated. IV access was obtained and laboratory work was drawn. The patient was placed on the quality assurance monitor body and found to be in a sinus rhythm. IV hydration was initiated due to poor p.o. intake. Chest x-ray was obtained and reveals emphysematous changes and pulmonary nodularity. Laboratory work is significant for a CO2 of 50. Patient has no elevation of the WBC. CT scan of the head is negative for acute intracranial process CT scan of the face reveals progressive localized neoplastic change. The patient was given 50 mcg of IV fentanyl and 4 mg of IV Zofran for her discomforts. She developed a rapid atrial fibrillation and according to her daughter she has had this previously. She was given 3 separate doses of 5 mg of IV metoprolol and remained in an A. fib with RVR. 10 mg of IV Cardizem was given after the patient's blood pressure recovered over 100 systolic. Patient's case was discussed with the hospitalist service. She and her daughter were informed of the plan for admission for palliative consult as she does not have any current in-home services. Patient's respiratory status did decline during her hours in the emergency department. She remained tachycardic but hypotensive concurrently. Goals of care were discussed with the patient's daughter by the nursing staff and confirmed by myself that the patient is a DNR. Hospitalist, Dr. Karla Thomson also spoke with the patient's daughter. Impression & Plan Rapid atrial fibrillation, Mass of nasopharynx, Acute hypotension, Respiratory failure with hypercapnia Critical Care Time Critical Care Time: Yes Total Critical Care Time: 45 I have personally spent 45 minutes of critical care time in the direct management of this patient. This includes bedside care, interpretation of diagnostic studies, and testing, discussion with consultants, patient, and family members, and other required patient management activities. This 45 minutes is in excess of all separately billable procedures. Discharge Plan Visit Data *Final* Discharge Date/Time: 11/13/18 23:25 Chief Complaint: Shortness of Breath/Dyspnea ED Provider: Katie Dalal Discharge Problem: Rapid atrial fibrillation, Mass of nasopharynx, Acute hypotension, Respiratory failure with hypercapnia Patient Disposition: Admitted As Inpatient Discharge Instructions Interventions: ED Discharge Assessment Last Done: 11/13/18 23:25 The scribe's documentation has been prepared under my direction and personally reviewed by me in its entirety. I confirm that the note above accurately reflects all work, treatment, procedures, and medical decision making performed by me.
[2018-11-13] MEDS ORDERED: VANCOMYCIN CONSULT ACTIVE PRN (21:20)
[2018-11-13] MEDS ORDERED: PIPERACILLIN/TAZOBACTAM 3.375 GM/115 ML BAG IV STA (21:20)
[2018-11-13] MEDS ORDERED: PIPERACILL/TAZOBAC CONSULT ACTIVE PRN (21:20)
[2018-11-13] MEDS ORDERED: HYDROCORTISONE SOD SUCCINATE 100 MG/2 ML VIAL IV STA (21:21)
[2018-11-13] MEDS ORDERED: DEXTROSE 50% 50 ML SYRINGE IV STA (21:22)
[2018-11-13] MEDS ORDERED: VANCOMYCIN HCL 1,000 MG in SODIUM CHLORIDE 0.9% 250 ML IV STA (21:28)
[2018-11-13] MEDS ORDERED: IPRATROPIUM BROMIDE NEB SOLN 0.02% 2.5 ML VIAL INH PRN (21:42)
[2018-11-13] MEDS ORDERED: LEVALBUTEROL HCL 1.25 MG/3 ML NEB INH PRN (21:42)
--- NOTE | 2018-11-13 22:34 | History & Physical Report ---
Date of Service November 13, 2018 Assessment & Plan (1) Acute respiratory failure with hypoxia and hypercapnia: 78yo F PMH end stage COPD, HTN, Lung ca, CHF, Afib, thyroid ca, CAD who presents in acute respiratory failure with hypercapnia. ARF with hypoxia and hypercapnia -Poor prognosis -Pt did become more responsive after 1 hr on bipap in the ER, still unable to answer more than yes/no questions -Continue on bipap -Recheck labs and ABG in AM -Palliative consult for AM -Daughter in line with DNR/DNI; OK with meds; will need to have discussion if levophed required for BP maintenance. Afib RVR -RVR improved slightly after digoxin, but has returned within 2 hours of dosing; will give another dose at appropriate time -Holding home meds due to BP until further stabilized -Limited options in setting of low BP Hypotension -pt had not taken any antihypertensives on day of admission -Likely related to afib, respiratory decompensation, med administration Lung Ca/nasopharyngeal Ca/Thyroid Ca -Patient wishes for no further eval or treatment -Conservative management -Palliative care consulted -Elected to not consult oncology CAD, CHF, CM -No evidence of fluid overload at this time, but will use caution with fluid bolus -Holding home meds in setting of acute decompensation H/O PE -Continue lovenox Severe protein mahad malnutrition/ Decreased ability to perform ADLs -Acute on chronic issues -If medically improves, recommend nutritional assessment -CM consulted for potential SNF placement; consider hospice Code: DNR/DNI Dispo: poor prognosis, PCU DVTP: lovenox (2) Rapid atrial fibrillation: (3) Mass of nasopharynx: (4) Cardiomyopathy: (5) Arteriosclerotic cardiovascular disease (ASCVD): (6) Pulmonary embolism: (7) CHF (congestive heart failure): (8) Lung cancer: (9) Thyroid ca: (10) Hypotension: (11) Decreased activities of daily living (ADL): (12) Severe protein-calorie malnutrition: History of Present Illness Chief Complaint: Facial pain, difficulty breathing Primary Care Provider: Lilliana Yeung DO Pt is a 78yo F PMH significant for COPD of 4-5 L o2/day, Lung Ca, CHF, CAD, afib, nasal septum cancer who presented on 11/13 with daughter for concerns of acute on chronic decompensation, increasing facial pain, and worsening shortness of breath. History is provided by daughter as patient's respiratory status greatly diminished at time of assessment. Daughter notes gradual decompensation since events April 2018, with a new nasal septum cancer being diagnosed. Radha lives alone in her own home and has only daughter to come over and help her, check on her. States over past 3-5 days she has been c/o increasing pain, increasing difficulty breathing, more forgetful, unsteady, shaky. Lots of anxiety, especially regarding not wanting to fall asleep due to fears of dying in her sleep, fears of being at home alone. Dgtr reports very poor self care of late, does not feed herself, sleeping a lot more in past 3-5 days. She notes she is confined to her house. Lung cancer is progressive and pt does not want further treatment. Last radiation 2-3 years ago, palliative. Has not met with palliative care, stating Radha has excuses and does not want to meet with them. Family would like SNF placement at this time, can no longer care for her in current state, assisted living too expensive. In the ER, she was evaluated for the facial pain and afib with RVR. Of note patient had not taken any home meds today. CT scan showed progression of facial neoplasm without bony involvement, CXR showed small progression of GABRIELLA density with emphysematous changes. Labwork significant for Bicarb of 50. Vitals unstable with BP 80s/50s, HR 120s afib, but oxygen saturation 91 on 4L oxymask. Given NSS with small bolus, lopressor 5 for RVR, fentanyl 50for pain, and dilt 20 for arrhythmia. Patient BP became quite low after med administration, with continued RVR. On my assessment, patient not responsive to sternal rub. ABG obtained and pH found to be 7.018, pCO2 150. Pt started on bipap at that time. Started on vanc, zosyn, hydrocortisone, D50 amp, digoxin 250mcg, and 250cc bolus x 2 Allergies Allergy/AdvReac Type Severity Reaction Status Date / Time bee venom protein (honey bee) Allergy Intermediate Hives and Verified 11/13/18 14:15 swelling lisinopril AdvReac Intermediate cough Verified 11/13/18 14:15 Home Medications Home Medications Medication Instructions Recorded Confirmed Type acetaminophen [Tylenol Extra 1,000 mg PO Q6H PRN 03/22/18 11/13/18 History Strength] carvedilol [Coreg] 25 mg PO BIDM 03/22/18 11/13/18 History furosemide [Lasix] 20 mg PO DAILY PRN 03/22/18 11/13/18 History ipratropium bromide 1 unit INHALATION Q4H PRN 03/22/18 11/13/18 History losartan [Cozaar] 100 mg PO QAM 03/22/18 11/13/18 History pravastatin [Pravachol] 20 mg PO QAM 03/22/18 11/13/18 History albuterol sulfate [Ventolin HFA] 1 - 2 puff INHALATION Q6H PRN 05/07/18 11/13/18 History levalbuterol HCl [Xopenex] 1.25 mg INHALATION TID PRN 05/07/18 11/13/18 History enoxaparin 80 mg/0.8 mL 80 mg SQ DAILY #24 ml 11/01/18 11/13/18 Rx subcutaneous syringe diltiazem HCl 180 mg PO DAILY 11/13/18 11/13/18 History Past Med/Surg History Medical History Lung cancer Hypertension CHF (congestive heart failure) Atrial fibrillation PAROXYSMAL Anxiety CAD (coronary artery disease) NON-OBSTRUCTIVE Chronic obstructive pulmonary disease 4.5 LPM VIA N/C CONTINUOUS Depression Hearing deficit History of cardiomyopathy "RESOLVED" ON MOST RECENT ECHO Pulmonary embolism 05/07/18 Thyroid carcinoma PAPILLARY; ENT MONITORING Surgical History History of bronchoscopy WITH BIOPSY History of cardiac cath 2013= NO STENTS History of herniorrhaphy History of stent insertion of renal artery Family History Other FHx: cancer FHx: heart disease FHx: hypertension Social History Preferred Language: Faroese Communication Ability: Effective Visual Impairment: No Limitations Health Spa Manager Required: No Beliefs That Will Affect Care: None marital status: / Current Living Situation: Alone Current Living Situation Comment: Family comes in to assist with care. Other Information That Helps Us Care for You: No Feels Safe at Home: Yes Safety Concerns: Feels Safe At This Time Smoking Status: Current every day smoker Tobacco Type: cigarettes ; Cigarettes Per Day: 2 ; Do You Dip or Chew Tobacco: No ; Second Hand Exposure: No ; Hx Alcohol Use: No Hx Substance Use: No Review of Systems Review of Systems: Unobtainable due to reduced consciousness Physical Exam Constitutional: + acute distress, + ill appearing, + thin, + cachectic, + altered mental status, + frail appearing, + in distress, + lethargic and + underweight ENMT: Nose: + external nose abnormality (portrusion of nasal mass) and + septum abnormality Mouth: + dry oral mucous membranes and + dentures Respiratory: + respiratory distress Auscultation: lungs clear to auscultation bilaterally Cardiovascular: Rate/Rhythm: + irregularly irregular Heart Sounds: no murmur Extremities: + abnormal capillary refill Cold extremities Gastrointestinal (Abdomen): normal bowel sounds, soft, nontender, no hepatosplenomegaly Skin: + turgor decreased and + mottling Neurologic: + obtunded; + does not move all extremities Psychiatric: Orientation: + not alert Results & Data Vital Signs (Past 12 Hours) Vital Signs Temp Pulse Pulse Resp BP BP Pulse Ox 11/13/18 22:16 107 H 18 78/50 L 89 L 11/13/18 22:01 119 H 28 H 83/54 L 11/13/18 21:46 116 H 19 93 11/13/18 21:45 115 H 31 H 85/46 L 11/13/18 21:37 129 H 28 H 80/51 L 89 L 11/13/18 21:30 122 H 18 86/44 L 90 11/13/18 21:15 124 H 18 96/58 L 93 11/13/18 21:10 98 11/13/18 21:07 123 H 26 H 87/43 L 97 11/13/18 21:00 134 H 23 93/59 L 97 11/13/18 20:45 114 H 17 79/51 L 97 11/13/18 20:30 123 H 19 85/58 L 97 11/13/18 20:15 115 H 23 93/55 L 98 11/13/18 20:10 121 H 97 H 93/55 L 97 11/13/18 20:00 111 H 28 H 92/52 L 98 11/13/18 19:00 119 H 21 97/62 L 96 11/13/18 18:38 118 H 77/49 L 11/13/18 18:15 147 H 75/49 L 11/13/18 17:30 147 H 11/13/18 17:00 134 H 147 H 22 114/59 L 90 11/13/18 16:09 167 H 122/84 11/13/18 15:50 127 H 20 156/57 H 95 11/13/18 14:58 93 H 23 176/95 H 94 11/13/18 13:38 95 11/13/18 13:27 98.4 F 84 24 179/101 H 96 11/13/18 13:00 89 L Laboratory Results 11/13/18 11/13/18 11/13/18 Range/Units 21:14 13:23 13:23 WBC (4.8-10.8) K/uL RBC (4.2-5.4) M/uL Hgb (12.0-16.0) g/dL Hct (37-47) % MCV (80-100) fL MCH (25-34) pg MCHC (32-36) g/dL RDW Std Deviation (36.4-46.3) fL RDW Coeff of Napoleon (11.5-14.5) % Plt Count (130-400) K/uL MPV (7.4-10.4) fL Immature Gran % (Auto) % Neut % (Auto) % Lymph % (Auto) % Nash % (Auto) % Eos % (Auto) % Baso % (Auto) % Immature Gran # (Auto) (0.00-0.02) K/uL Neut # (Auto) (1.4-6.5) K/uL Lymph # (Auto) (1.2-3.4) K/uL Nash # (Auto) (0.11-0.59) K/uL Eos # (Auto) (0-0.5) K/uL Baso # (Auto) (0-0.2) K/uL PT (9.0-12.0) Seconds INR (0.9-1.1) APTT (21.0-31.0) Seconds PTT Ratio Sodium 146 H (136-145) mmol/L Potassium 4.3 (3.5-5.1) mmol/L Chloride 96 L (98-107) mmol/L Carbon Dioxide 50 H* (21-32) mmol/L Anion Gap 0 L (3-11) BUN 18 (7-18) mg/dl Creatinine 0.32 L (0.6-1.2) mg/dl Est Cr Clr Drug Dosing 93.0 ml/min Est GFR ( Amer) 126.2 Est GFR (Non-Af Amer) 108.9 BUN/Creatinine Ratio 55.2 H (10-20) Glucose 120 H (70-99) mg/dl POC Glucose 88 (70-99) Calcium 9.3 (8.5-10.1) mg/dl Magnesium 1.9 (1.8-2.4) mg/dl Total Bilirubin 0.4 (0.2-1) mg/dl AST 16 (15-37) U/L ALT 32 (12-78) U/L Alkaline Phosphatase 47 (45-117) U/L Troponin I < 0.015 (0-0.045) ng/ml Total Protein 6.7 (6.4-8.2) gm/dl Albumin 3.4 (3.4-5.0) gm/dl Globulin 3.3 (2.5-4.0) gm/dl Albumin/Globulin Ratio 1.0 (0.9-2) Urine Color Urine Appearance (Clear) Urine pH (4.5-7.5) Ur Specific [place] (1.000-1.030) Urine Protein (Negative) Urine Glucose (UA) (Negative) Urine Ketones (Negative) Urine Blood (Negative) Urine Nitrite (Negative) Urine Bilirubin (Negative) Urine Urobilinogen (Negative) Ur Leukocyte Esterase (Negative) Urine WBC (Auto) (0-5) /hpf Urine RBC (Auto) (0-4) /hpf U Hyaline Cast (Auto) (0-5) /lpf U Epithel Cells (Auto) (0-5) /lpf Urine Bacteria (Auto) (Negative) 11/13/18 11/13/18 11/13/18 Range/Units 13:23 13:23 13:22 WBC 4.29 L (4.8-10.8) K/uL RBC 4.05 L (4.2-5.4) M/uL Hgb 12.2 (12.0-16.0) g/dL Hct 40.5 (37-47) % MCV 100.0 (80-100) fL MCH 30.1 (25-34) pg MCHC 30.1 L (32-36) g/dL RDW Std Deviation 47.5 H (36.4-46.3) fL RDW Coeff of Napoleon 13.2 (11.5-14.5) % Plt Count 130 (130-400) K/uL MPV 10.2 (7.4-10.4) fL Immature Gran % (Auto) 0.7 % Neut % (Auto) 64.1 % Lymph % (Auto) 19.3 % Nash % (Auto) 14.5 % Eos % (Auto) 1.2 % Baso % (Auto) 0.2 % Immature Gran # (Auto) 0.03 H (0.00-0.02) K/uL Neut # (Auto) 2.75 (1.4-6.5) K/uL Lymph # (Auto) 0.83 L (1.2-3.4) K/uL Nash # (Auto) 0.62 H (0.11-0.59) K/uL Eos # (Auto) 0.05 (0-0.5) K/uL Baso # (Auto) 0.01 (0-0.2) K/uL PT 10.2 (9.0-12.0) Seconds INR 1.0 (0.9-1.1) APTT 26.1 (21.0-31.0) Seconds PTT Ratio 1.0 Sodium (136-145) mmol/L Potassium (3.5-5.1) mmol/L Chloride (98-107) mmol/L Carbon Dioxide (21-32) mmol/L Anion Gap (3-11) BUN (7-18) mg/dl Creatinine (0.6-1.2) mg/dl Est Cr Clr Drug Dosing ml/min Est GFR ( Amer) Est GFR (Non-Af Amer) BUN/Creatinine Ratio (10-20) Glucose (70-99) mg/dl POC Glucose (70-99) Calcium (8.5-10.1) mg/dl Magnesium (1.8-2.4) mg/dl Total Bilirubin (0.2-1) mg/dl AST (15-37) U/L ALT (12-78) U/L Alkaline Phosphatase (45-117) U/L Troponin I (0-0.045) ng/ml Total Protein (6.4-8.2) gm/dl Albumin (3.4-5.0) gm/dl Globulin (2.5-4.0) gm/dl Albumin/Globulin Ratio (0.9-2) Urine Color Yellow Urine Appearance Cloudy A (Clear) Urine pH 7.0 (4.5-7.5) Ur Specific [place] 1.020 (1.000-1.030) Urine Protein Trace H (Negative) Urine Glucose (UA) Negative (Negative) Urine Ketones Negative (Negative) Urine Blood Negative (Negative) Urine Nitrite Negative (Negative) Urine Bilirubin Negative (Negative) Urine Urobilinogen Negative (Negative) Ur Leukocyte Esterase Negative (Negative) Urine WBC (Auto) 1-5 (0-5) /hpf Urine RBC (Auto) 0-4 (0-4) /hpf U Hyaline Cast (Auto) 1-5 (0-5) /lpf U Epithel Cells (Auto) 20-30 H (0-5) /lpf Urine Bacteria (Auto) Negative (Negative) Code Status & VTE Plan Code Status DNR/DNI VTE Prophylaxis Plan VTE Prophylaxis will be ordered: Yes Supervising Physician Co-Signing Physician Notes I personally interviewed and examined the patient. I agree with history of present illness and physical exam mentioned above, I also performed my own history taking and examination. Past medical history and review of system has been obtained by myself I reviewed all pertinent labs and studies Reviewed current medications I discussed and formulated of the assessment and plan mentioned above. Please refer to the Summary mentioned below. 78-year-old female with past medical history of hypertension, lung cancer, A. fib, congestive heart failure, CAD and recently nasopharyngeal mass that was diagnosed with a biopsy revealing cancer that is inoperable. Presented to the ED with severe shortness of breath was found to have tachycardia of 120 and was given small dose of Lopressor and IV 5 mg and a small dose of fentanyl. Patient was noticed after that to be very lethargic on oxygen. ABG revealed respiratory hypercapnia. Patient was oxygen was titrated down, she was started on BiPAP and significantly improved after that. Regarding her tachycardia due to borderline low blood pressure she received 2 boluses each is to 50 cc. After that she received digoxin 0.25 mg IV x2. Called daughter and discussed with her patient's situation, she stated that her mother is DNR/DNI. But until then the expectation is that we treat with all kind of active medical management. Patient received 100 mg of hydrocortisone for potential adrenal insufficiency. Also received antibiotics Ge vancomycin/Zosyn for potential infection. obtain UA/blood culture and sensitivity. Appearance: Frail elderly female in no acute severe distress, appears to be cachectic Eyes: normal Sclerae, extraocular muscle intact ENT: hearing grossly normal Neck: supple Respiratory/Chest: Poor inspiratory effort, equal air entry Cardiovascular: regular rate, rhythm, no murmur Abdomen: non tender, soft, no masses Extremities: no edema musculoskeletal: Severe bilateral muscle Neurologic/Psychiatric: Upon my exam patient was unresponsive, not following commands, later on after BiPAP patient woke up and started to follow commands. Skin: normal color, warm/dry, no rash Stephanie Schroeder MD, [facility] PG Care Time/CCT Total # of Minutes Spent Total Time Spent with Patient: Total time spent is greater than 50% in coordination of care (as documented) at patient's floor/unit and/or counseling patient: Resident Activity Tracking Resident Involvement: Resident Care Provided Care Provided: Adult Hospital Medicine (1) Pulmonary embolism Acute cor pulmonale presence: without acute cor pulmonale Chronicity: acute Pulmonary embolism type: unspecified Qualified Code(s): I26.99 - Other pulmonary embolism without acute cor pulmonale
[2018-11-13] MEDS ORDERED: SODIUM CHLORIDE 0.9% 250 ML IV ONE (22:36)
[2018-11-13] MEDS ORDERED: DIGOXIN 250 MCG in SYRINGE 9 ML IV ONE (22:45)
[2018-11-13] MEDS ORDERED: MAGNESIUM HYDROXIDE SUSP 30 ML UDC PO PRN (23:55)
[2018-11-13] MEDS ORDERED: POLYETHYLENE (MIRALAX) 17 GM PACK PO PRN (23:55)
[2018-11-13] MEDS ORDERED: ONDANSETRON INJ 2 MG/ML 2 ML VIAL IV PRN (23:55)
[2018-11-13] MEDS ORDERED: ALUMINUM/MAGNESIUM SUSP 30 ML UDC PO PRN (23:55)
[2018-11-13] MEDS ORDERED: ACETAMINOPHEN 325 MG TAB PO PRN (23:55)
[2018-11-14] MEDS: SODIUM CHLORIDE 0.9% 1000ML 1,000 ML IV SCH ×2 (00:07→08:02)
[2018-11-14] MEDS ORDERED: DIGOXIN 250 MCG in SYRINGE 9 ML IV STA (03:25)
--- NOTE | 2018-11-14 04:09 | History & Physical Report ---
Date of Service November 14, 2018 History of Present Illness This note was placed for billing purposes, it is an extension to my previous note. Please refer to the full note that was generated by me and the medical student for the same day for clinical information. Primary Care Provider: Lilliana Yeung DO Allergies Allergy/AdvReac Type Severity Reaction Status Date / Time bee venom protein (honey bee) Allergy Intermediate Hives and Verified 11/13/18 14:15 swelling lisinopril AdvReac Intermediate cough Verified 11/13/18 14:15 Home Medications Home Medications Medication Instructions Recorded Confirmed Type acetaminophen [Tylenol Extra 1,000 mg PO Q6H PRN 03/22/18 11/13/18 History Strength] carvedilol [Coreg] 25 mg PO BIDM 03/22/18 11/13/18 History furosemide [Lasix] 20 mg PO DAILY PRN 03/22/18 11/13/18 History ipratropium bromide 1 unit INHALATION Q4H PRN 03/22/18 11/13/18 History losartan [Cozaar] 100 mg PO QAM 03/22/18 11/13/18 History pravastatin [Pravachol] 20 mg PO QAM 03/22/18 11/13/18 History albuterol sulfate [Ventolin HFA] 1 - 2 puff INHALATION Q6H PRN 05/07/18 11/13/18 History levalbuterol HCl [Xopenex] 1.25 mg INHALATION TID PRN 05/07/18 11/13/18 History enoxaparin 80 mg/0.8 mL 80 mg SQ DAILY #24 ml 11/01/18 11/13/18 Rx subcutaneous syringe diltiazem HCl 180 mg PO DAILY 11/13/18 11/13/18 History Past Med/Surg History Medical History Lung cancer Hypertension CHF (congestive heart failure) Atrial fibrillation PAROXYSMAL Anxiety CAD (coronary artery disease) NON-OBSTRUCTIVE Chronic obstructive pulmonary disease 4.5 LPM VIA N/C CONTINUOUS Depression Hearing deficit History of cardiomyopathy "RESOLVED" ON MOST RECENT ECHO Pulmonary embolism 05/07/18 Thyroid carcinoma PAPILLARY; ENT MONITORING Surgical History History of bronchoscopy WITH BIOPSY History of cardiac cath 2013= NO STENTS History of herniorrhaphy History of stent insertion of renal artery Family History Other FHx: cancer FHx: heart disease FHx: hypertension Social History Preferred Language: Marshallese Communication Ability: Effective Visual Impairment: No Limitations Crotch Breaker Required: No Beliefs That Will Affect Care: None marital status: / Current Living Situation: Alone Current Living Situation Comment: Family comes in to assist with care. Other Information That Helps Us Care for You: No Feels Safe at Home: Yes Safety Concerns: Feels Safe At This Time Smoking Status: Current every day smoker Tobacco Type: cigarettes ; Cigarettes Per Day: 2 ; Do You Dip or Chew Tobacco: No ; Second Hand Exposure: No ; Hx Alcohol Use: No Hx Substance Use: No Results & Data Vital Signs (Past 12 Hours) Vital Signs Temp Pulse Pulse Resp BP BP Pulse Ox 11/14/18 03:59 138 H 11/13/18 23:43 129 H 11/13/18 23:42 128 H 18 91 11/13/18 23:40 36.4 C L 140 H 26 H 93/60 L 11/13/18 23:15 109 H 20 81/48 L 88 L 11/13/18 23:10 121 H 23 89 L 11/13/18 23:00 91 H 19 97/43 L 87 L 11/13/18 22:46 123 H 24 80/46 L 91 11/13/18 22:45 107 H 19 98 11/13/18 22:38 143 H 18 82/51 L 11/13/18 22:16 107 H 18 78/50 L 89 L 11/13/18 22:01 119 H 28 H 83/54 L 11/13/18 21:46 116 H 19 93 11/13/18 21:45 115 H 31 H 85/46 L 11/13/18 21:37 129 H 28 H 80/51 L 89 L 11/13/18 21:30 122 H 18 86/44 L 90 11/13/18 21:15 124 H 18 96/58 L 93 11/13/18 21:10 98 11/13/18 21:07 123 H 26 H 87/43 L 97 11/13/18 21:00 134 H 23 93/59 L 97 11/13/18 20:45 114 H 17 79/51 L 97 11/13/18 20:30 123 H 19 85/58 L 97 11/13/18 20:15 115 H 23 93/55 L 98 11/13/18 20:10 121 H 97 H 93/55 L 97 11/13/18 20:00 111 H 28 H 92/52 L 98 11/13/18 19:00 119 H 21 97/62 L 96 11/13/18 18:38 118 H 77/49 L 11/13/18 18:15 147 H 75/49 L 11/13/18 17:30 147 H 11/13/18 17:00 134 H 147 H 22 114/59 L 90 Code Status & VTE Plan VTE Prophylaxis Plan VTE Prophylaxis will be ordered: Yes PG Care Time/CCT Total # of Minutes Spent Total Time Spent with Patient: Total time spent is greater than 50% in coordination of care (as documented) at patient's floor/unit and/or counseling patient:
[2018-11-14] MEDS: PATIENT'S HEIGHT AND/OR WEIGHT NEEDED SCH ×2 (06:41→08:04)
[2018-11-14 07:31] LABS: Hematocrit (blood only) 40.4 % (37-47); Hemoglobin 11.9 g/dL (12.0-16.0); Immature Granulocytes # (auto) 0.02 K/uL (0.00-0.02); Immature Granulocytes % (auto) 0.2 %; Lymphocytes # (auto) 0.47 K/uL (1.2-3.4); Lymphocytes % (auto) 5.8 %; Mean Corpuscular Hemoglobin 30.1 pg (25-34); Mean Corpuscular Hgb Conc 29.5 g/dL (32-36); Mean Corpuscular Volume 102.3 fL (80-100); Mean Platelet Volume 10.5 fL (7.4-10.4); Monocytes # (auto) 0.52 K/uL (0.11-0.59); Monocytes % (auto) 6.4 %; Neutrophils # (auto) 7.11 K/uL (1.4-6.5); Neutrophils % (auto) 87.6 %; Platelet Count 138 K/uL (130-400); RDW Coefficient of Variation 13.4 % (11.5-14.5); RDW Standard Deviation 50.3 fL (36.4-46.3); Red Blood Count 3.95 M/uL (4.2-5.4); White Blood Count 8.12 K/uL (4.8-10.8)
[2018-11-14 07:51] LABS: Calcium 8.6 mg/dl (8.5-10.1); Est GFR (African American) 103.8; Est GFR (Non-African American) 89.5; Potassium 4.5 mmol/L (3.5-5.1)
[2018-11-14 07:54] LABS: Base Excess ABG 8.4 mEq/L (-9-1.8); HCO3 ABG 41 mmol/L (19-24); Oxygen Saturation ABG 96.9 % (90-95); PCO2 ABG 124 mmHg (35-46); PO2 ABG 115 mm/Hg (80-95)
[2018-11-14 07:55] LABS: Allen Test Pos (Pos)
[2018-11-14 07:57] LABS: pH ABG 7.14 (7.35-7.45)
[2018-11-14] MEDS ORDERED: PIPERACILLIN/TAZOBACTAM 3.375 GM in DEXTROSE 5% 100 ML IV SCH (08:00)
[2018-11-14] MEDS ORDERED: CARVEDILOL 25 MG TAB PO SCH (08:00)
[2018-11-14] MEDS ORDERED: dilTIAZem ER 180 MG CAPCR PO SCH (09:00)
[2018-11-14] MEDS ORDERED: ENOXAPARIN 80 MG/0.8 ML SYR SQ SCH (09:00)
[2018-11-14] MEDS ORDERED: ENOXAPARIN INJ 60 MG/0.6 ML SYR SQ SCH (09:30)
[2018-11-14] MEDS ORDERED: ATROPINE SULFATE 1% OP SOLN 5 ML BTL SL PRN (09:57)
[2018-11-14] MEDS ORDERED: LORazepam 0.5 MG/1 ML VIAL IV PRN (09:57)
[2018-11-14] MEDS ORDERED: MoRPHine SULFATE 2 MG/ML CARP IV PRN (09:57)
--- NOTE | 2018-11-14 10:14 | Palliative Care Consultation ---
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 pH severely acidotic. CT chest showed slight progression of lung malignancy, emphysema and other findings. Patient was placed on bipap, started on IVF and abx. Apparently the patient has not been seeking aggressive medical treatment for some time now. Her daughter reports that she really has been on a slow steady decline since her last palliative XRT a couple years ago. After that, she was discovered to have this nasal septum cancer and decided against palliative XRT. Patient lives home alone and has not been feeling well for the last couple weeks. Her daughter/POA, Savanna, states that she tried to get patient to seek medical attention, but patient declined. Finally, yesterday, patient called her daughter and said she was unable to get off the couch since the previous evening and thought she needed to go to the hospital. Patient was in respiratory distress when she arrived. Given patient's multiple chronic illnesses, steady decline, decompensation, wishes were discussed last evening in the ED. Daughter stated patient would not want any heroic measures. Palliative care is consulted to discuss goals of care. -Met with patient and her daughter/POA Savanna, in room 242-2. Patient is mostly obtunded on bipap. Does occasionally move extremities or stir during exam. Patient unable to participate in any conversation. -Savanna states that recently patient's quality of life, functional status, and mental status have been declining. Patient was actually unable to even get off the couch the day before she came in. Savanna was trying to get patient to seek medical attention when she noticed the decline, including patient not eating/drinking, however patient did not want to seek treatment. Finally, the patient called Savanna yesterday and said she needed to go to the hospital. Savanna believes that patient may have known that she was coming to the end of life. patient always said she did not want to at home alone. -In discussing patient's wishes, Savanna states that she really just wants comfort and to peacefully. We reviewed her living will which states when end stage, she does not want ANY life prolonging treatment including CPR, intubation, abx, IVF/feedings, etc. We talked about the fact that patient essentially does not have a reversible cause to this decompensation. CT chest showed emphysema and known malignancy. Even with continued bipap treatment, patient's pH was 7.14 this morning with a CO2 of 124. We will transition to SERVICE CENTER ASSISTANT. -Comfort measures only. -Discontinue IVF and abx according to patient's living will. -No further lab draws. -Discontinue bipap to regular nasal cannula (wears NC at home chronically). -Morphine 2mg IV Q2h PRN pain or SOB. Family counseled on the secondary side effects of morphine such as sedation and respiratory depression. Main goal is for comfort and accepting of side effects. -Atropine 1% oph soln 4 drops SL Q1h PRN secretions. -Lorazepam 0.5mg IV Q4h PRN anxiety/agitation. -Transfer out of telemetry unit. Patient is expected to in hours to maybe days. Daughter is aware and accepting of this. I doubt patient will be stable to transfer out of facility. 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 pH severely acidotic. CT chest showed slight progression of lung malignancy, emphysema and other findings. Patient was placed on bipap, started on IVF and abx. Apparently the patient has not been seeking aggressive medical treatment for some time now. Her daughter reports that she really has been on a slow steady decline since her last palliative XRT a couple years ago. After that, she was discovered to have this nasal septum cancer and decided against palliative XRT. Patient lives home alone and has not been feeling well for the last couple weeks. Her daughter/POA, Savanna, states that she tried to get patient to seek medical attention, but patient declined. Finally, yesterday, patient called her daughter and said she was unable to get off the couch since the previous evening and thought she needed to go to the hospital. Patient was in respiratory distress when she arrived. Given patient's multiple chronic illnesses, steady decline, decompensation, wishes were discussed last evening in the ED. Daughter stated patient would not want any heroic measures. Palliative care is consulted to discuss goals of care. Thank you kindly for this consult. Palliative care team will follow as needed. Allergies Allergy/AdvReac Type Severity Reaction Status Date / Time bee venom protein (honey bee) Allergy Intermediate Hives and Verified 11/13/18 14:15 swelling lisinopril AdvReac Intermediate cough Verified 11/13/18 14:15 Home Medications Home Medications Medication Instructions Recorded Confirmed Type acetaminophen [Tylenol Extra 1,000 mg PO Q6H PRN 03/22/18 11/13/18 History Strength] carvedilol [Coreg] 25 mg PO BIDM 03/22/18 11/13/18 History furosemide [Lasix] 20 mg PO DAILY PRN 03/22/18 11/13/18 History ipratropium bromide 1 unit INHALATION Q4H PRN 03/22/18 11/13/18 History losartan [Cozaar] 100 mg PO QAM 03/22/18 11/13/18 History pravastatin [Pravachol] 20 mg PO QAM 03/22/18 11/13/18 History albuterol sulfate [Ventolin HFA] 1 - 2 puff INHALATION Q6H PRN 05/07/18 11/13/18 History levalbuterol HCl [Xopenex] 1.25 mg INHALATION TID PRN 05/07/18 11/13/18 History enoxaparin 80 mg/0.8 mL 80 mg SQ DAILY #24 ml 11/01/18 11/13/18 Rx subcutaneous syringe diltiazem HCl 180 mg PO DAILY 11/13/18 11/13/18 History Patient History Medical History Lung cancer Hypertension CHF (congestive heart failure) Atrial fibrillation PAROXYSMAL Anxiety CAD (coronary artery disease) NON-OBSTRUCTIVE Chronic obstructive pulmonary disease 4.5 LPM VIA N/C CONTINUOUS Depression Hearing deficit History of cardiomyopathy "RESOLVED" ON MOST RECENT ECHO Pulmonary embolism 05/07/18 Thyroid carcinoma PAPILLARY; ENT MONITORING Surgical History History of bronchoscopy WITH BIOPSY History of cardiac cath 2012= NO STENTS History of herniorrhaphy History of stent insertion of renal artery Family History Other FHx: cancer FHx: heart disease FHx: hypertension Social History Preferred Language: Maori Communication Ability: Effective Visual Impairment: No Limitations Laboratory Operations Coordinator Required: No Beliefs That Will Affect Care: None marital status: / Current Living Situation: Alone Current Living Situation Comment: Family comes in to assist with care. Other Information That Helps Us Care for You: No Feels Safe at Home: Yes Safety Concerns: Feels Safe At This Time Smoking Status: Current every day smoker Tobacco Type: cigarettes ; Cigarettes Per Day: 2 ; Do You Dip or Chew Tobacco: No ; Second Hand Exposure: No ; Hx Alcohol Use: No Hx Substance Use: No Review of Systems Review of Systems: Unobtainable due to cognitive status Physical Exam Constitutional: + ill appearing; no acute distress ENMT: Nose: + external nose abnormality (protruding mass from nasal septum) Respiratory: normal respiratory effort; no respiratory distress Auscultation: + diminished lung sounds Cardiovascular: RRR, no murmur, no edema Gastrointestinal (Abdomen): Inspection/Auscultation: abdomen normal to inspection Percussion/Palpation: abdomen soft Skin: + pallor Neurologic: + obtunded Results & Data Vital Signs (Past 12 Hours) Vital Signs Temp Pulse Pulse Resp BP BP Pulse Ox 11/14/18 07:37 36.4 C L 96 H 14 124/69 93 11/14/18 07:07 97 H 23 11/14/18 05:36 52 L 20 98 11/14/18 04:45 92 H 11/14/18 03:59 138 H 11/14/18 03:15 36.2 C L 114 H 23 96/66 L 79 L 11/13/18 23:43 129 H 11/13/18 23:42 128 H 18 91 11/13/18 23:40 36.4 C L 140 H 26 H 93/60 L 11/13/18 23:15 109 H 20 81/48 L 88 L 11/13/18 23:10 121 H 23 89 L 11/13/18 23:00 91 H 19 97/43 L 87 L 11/13/18 22:46 123 H 24 80/46 L 91 11/13/18 22:45 107 H 19 98 11/13/18 22:38 143 H 18 82/51 L 11/13/18 22:16 107 H 18 78/50 L 89 L Time Spent Midlevel 70 minutes with >50% of the time spent at bedside with patient and family discussing condition, GOC, EOL treatment.
[2018-11-14] MEDS ORDERED: ATROPINE SULFATE 1% OP SOLN 2 ML BTL SL PRN (10:42)
--- NOTE | 2018-11-14 12:06 | Hospitalist Progress Note ---
Date of Service November 14, 2018 Assessment & Plan (1) Acute respiratory failure with hypoxia and hypercapnia: Ms. De Souza's daughter and Karon Mcmanusner met and per patient's living will she will be made comfort measures only. Ms. De Souza has significant comorbidities and intervention will not likely result in any meaningful reversal of her condition. - transfer off tele - dc meds other than for comfort, IVs, no lab draws - Palliative feels she likely has hours to days. Will hold off on discussing any placement for now as patient appears to be rapidly declining and remains obtunded. - control pain and anxiety (2) Rapid atrial fibrillation: (3) Mass of nasopharynx: (4) Cardiomyopathy: (5) Arteriosclerotic cardiovascular disease (ASCVD): (6) Pulmonary embolism: (7) CHF (congestive heart failure): (8) Lung cancer: (9) Thyroid ca: (10) Hypotension: (11) Decreased activities of daily living (ADL): (12) Severe protein-calorie malnutrition: Subjective Ms. De Souza appears comfortable but obtunded. Discussed patient with Palliative and briefly with daughter. Physical Exam Physical Exam: General: no distress Respiratory: chest non tender, clear to auscultation, normal breath sounds, no respiratory distress, no accessory muscle use Cardiac: regular rate and rhythm, no rub or gallop, no murmur, no edema, no jvd GI/: active bowel sounds, no abd pain or tenderness, soft, non distended Neuro/Psych: obtunded Skin: normal color, dry Results & Data Vital Signs (Past 12 Hours) Vital Signs Temp Pulse Pulse Resp BP Pulse Ox 11/14/18 10:46 36.7 C 92 H 14 123/68 97 11/14/18 07:37 36.4 C L 96 H 14 124/69 93 11/14/18 07:07 97 H 23 11/14/18 05:36 52 L 20 98 11/14/18 04:45 92 H 11/14/18 03:59 138 H 11/14/18 03:15 36.2 C L 114 H 23 96/66 L 79 L PG Care Time/CCT Total # of Minutes Spent Total Time Spent with Patient: Total time spent is greater than 50% in coordination of care (as documented) at patient's floor/unit and/or counseling patient: (1) Pulmonary embolism Acute cor pulmonale presence: without acute cor pulmonale Chronicity: acute Pulmonary embolism type: unspecified Qualified Code(s): I26.99 - Other pulmonary embolism without acute cor pulmonale
--- NOTE | 2018-11-14 13:09 | Death Summary ---
Date of Service November 14, 2018 Pronouncement Note Contributing Factors (1) Acute respiratory failure with hypoxia and hypercapnia: Contributing factors: Ms. De Souza ceased to have heartbeat and was pronounced by myself at 12:57 pm. No heartbeat able to be auscultated over a minute of listening, no pupillary reflex. She had been made comfort measures only due to significant comorbidities and patient's living will indicated that was her wish. Family was bedside. (2) Rapid atrial fibrillation: (3) Mass of nasopharynx: (4) Cardiomyopathy: (5) Arteriosclerotic cardiovascular disease (ASCVD): (6) Pulmonary embolism: (7) CHF (congestive heart failure): (8) Lung cancer: (9) Thyroid ca: (10) Hypotension: (11) Decreased activities of daily living (ADL): (12) Severe protein-calorie malnutrition: Additional Data Attending physician: Bradley Turner MD
[2018-11-14] MEDS ORDERED: VANCOMYCIN HCL 750 MG in SODIUM CHLORIDE 0.9% 250 ML IV SCH (20:00)
== END 2018-11-14 12:57 | disposition expired | DRG 189 ==
LOC: ED 13:09 → 2S 22:23 → SUATTDRO 22:23 → 2S 23:25 → 3W 11-14 12:32